=== PATIENT | female | born 1970 | race American Indian/Alaskan Native ===

== ENCOUNTER 2016-06-11 17:59 | Emergency (ER) | payer OTHER ==
[2016-06-11 18:49] VITALS: BP 121/69
== END 2016-06-11 21:22 | disposition left against medical advice (07) ==
LOC: DL.ED 17:59
DX: Z53.21 Procedure and treatment not carried out due to patient leaving prior to being seen by health care provider (principal)
CPT/HCPCS: 87081; 87430; 87804

== ENCOUNTER 2016-11-27 07:40 | Day surgery (SDC) | payer OTHER ==
[~2016-11-27 07:40] MED LIST: Dextrose 5%-0.45% NaCl 1,000 ML IV SCH; Midazolam 1 MG/ML 2 ML SDV ONE; Sodium Chloride 0.9% 10 ML Syringe FLUSH PRN; fentaNYL 100 MCG/2 ML SDV ONE
[2016-11-27] MEDS ORDERED: Midazolam 1 MG/ML 2 ML SDV IV ONE ×3 (07:41→08:46)
[2016-11-27] MEDS ORDERED: fentaNYL 100 MCG/2 ML SDV IV ONE ×3 (07:41→08:45)
--- NOTE | 2016-11-27 10:42 | OR ---
DATE: 11/27/2016 PROCEDURE: Esophagogastroduodenoscopy and multiple pinch biopsies. INSTRUMENT USED: GIF-H180 Olympus video panendoscope. PREMEDICATIONS: No oral topical anesthesia used. Fentanyl 100 mcg intravenous, Versed 2 mg intravenous, nasal 2 L O2 cannula. The procedure was done under pulse oximetry, BP recording, and monitoring engineer. INDICATION: The patient with persistent upper abdominal pain unexplained, not responsive to medical measures. Recent CT enterography suggestive of prominent small bowel folds. Previous duodenal biopsy suspicious for celiac disease. DESCRIPTION OF PROCEDURE: Esophagogastroduodenoscopy is performed for detection of any active erosive lesions. Biopsies to be obtained from the small bowel for any evidence of celiac disease, endoscopic hemostasis therapy if needed. The scope was passed with ease. Adequate visualization of the esophagus was made from proximal to distal areas. No upper esophageal lesions identified. No distal esophageal stricture. No uphill or downhill esophageal varices. No Ella-Ibarra tear. No evidence of erosive esophagitis by [place] criteria. No esophageal polyp or tumor mass identified. Z-line was seen at around 40 cm distal to the oral verge, configuration consistent with Grade 1 by Zapp classification. No esophageal polyp or tumor mass identified. No proximal gastric varices noted. Gastric fundus examination by retroflexion showed no polypoid lesions. No gastric ulcer, malignant mass, or vascular ectasia identified. Duodenal bulb showed no ulcer. Visualized second part of the duodenum was unremarkable. Multiple pinch biopsies four in number were taken from different areas of the second part of the duodenum, and tissues were obtained from the duodenal bulb at 9 o'clock and 12 o'clock positions and sent for any histopathologic evidence of celiac disease. No bleeding was noted from any of the visualized areas at the completion of examination. Photographs were taken of the duodenal bulb, gastric antrum, and distal esophagus. IMPRESSION: Normal study. The patient tolerated the procedure well. [facility] /[id number]
[2016-11-27 11:04] VITALS: BP 102/60
--- NOTE | 2016-11-27 11:42 | LETTER ---
11/27/2016 Allyson Zhu NP [facility] [address] [place] [address] RE: NISHANIMCO : 1970 Dear Ms. Zhu: Ms. Nimco Luis had esophagogastroduodenoscopy done this morning and she tolerated the procedure well. I herewith send a copy of the endoscopy note and photographs for your review. Thank you. Sincerely, [facility] /[id number]
== END 2016-11-27 11:00 | disposition home or self-care (01) ==
LOC: DL.ENDO 07:40
PROVIDERS: ATTEND Internal Medicine Gastroenterology
DX: R10.10 Upper abdominal pain, unspecified (principal); E11.9 Type 2 diabetes mellitus without complications; E78.5 Hyperlipidemia, unspecified; E66.9 Obesity, unspecified; Z90.49 Acquired absence of other specified parts of digestive tract; Z98.890 Other specified postprocedural states; F43.21 Adjustment disorder with depressed mood
CPT/HCPCS: 43239; J2250; J3010; J7042

== ENCOUNTER 2017-03-27 00:08 | Emergency (ER) | payer OTHER ==
[2017-03-27] MEDS ORDERED: Sodium Chloride 0.9% 1,000 ML IV ONE (00:45)
[2017-03-27 00:46] LABS: CHLORIDE,CL 106 mmol/L (101-111); SODIUM,NA 139 mmol/L (135-145)
[2017-03-27] MEDS ORDERED: Iopamidol 612 MG/ML 75 ML Bottle IVPUSH ONE (02:04)
--- NOTE | 2017-03-27 02:10 | EDM.PDOC ---
ED HPI GENERAL MEDICAL PROBLEM - General Chief Complaint: Diabetic Complaint Stated Complaint: BLOOD SUGAR LOW Time Seen by Provider: 03/27/17 00:20 Source of Information: Reports: Patient History Limitations: Reports: No Limitations - History of Present Illness INITIAL COMMENTS - FREE TEXT/NARRATIVE: C/o of lower left back pain and blood sugars keep dropping today with her lowest of 32. Blood sugars lower than usual for past 2 days. Was seen in clinic today and told just to eat more. Has had nausea, vomiting and a couple diarrhea stools. Lower Back Pain Score (Numeric/FACES): 9 - Related Data Allergies Allergy/AdvReac Type Severity Reaction Status Date / Time No Known Allergies Allergy Verified 03/27/17 01:22 Home Meds: Home Meds Fenofibrate [Fenoglide] 135 mg PO DAILY 09/07/13 [History] Omeprazole 20 mg PO BID 09/07/13 [History] metFORMIN HCl [Metformin HCl] 1,000 mg PO BID 09/07/13 [History] glyBURIDE [Glyburide] 10 mg PO BID 09/08/13 [History] Acetaminophen [Tylenol] 2 tab PO ASDIRECTED PRN 02/06/14 [History] Aspirin [Halfprin] 81 mg PO DAILY 11/04/14 [History] Insulin Aspart Protam & Aspart [Novolog Mix 70-30 Flexpen Syrn] 20 units SQ BIDMEALS 11/26/16 [History] Levonorgestrel [Mirena] 1 device VAG ASDIRECTED 11/26/16 [History] Saxagliptin HCl [Onglyza] 0.5 tab PO DAILY 11/26/16 [History] Ergocalciferol (Vitamin D2) [Vitamin D2] 50,000 units PO Q7D 11/27/16 [History] atorvaSTATin [Lipitor] 1 tab PO BEDTIME 11/27/16 [History] Past Medical History Other HEENT History: WEARS CORRECTIVE LENSES Respiratory History: Reports: None Gastrointestinal History: Reports: GERD Genitourinary History: Reports: None Other OB/BYN History: 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 ADJUSTMENT DISORDER Endocrine/Metabolic History: Reports: Diabetes, Type II Hematologic History: Reports: Anemia Immunologic History: Reports: None Oncologic (Cancer) History: Reports: None Other Dermatologic History: ECZEMA ON BILAT ARMS & HANDS - Infectious Disease History Infectious Disease History: Reports: Chicken Pox, Measles, Mumps - Past Surgical History Other HEENT Surgeries/Procedures: WISDOM TEETH EXTRACTION X4 GI Surgical History: Reports: Cholecystectomy, Colonoscopy, EGD Female Surgical History: Reports: Section, LEEP, Salpingo- Oophorectomy, Tubal Ligation Other Female Surgeries/Procedures: VAGINAL CERVICAL LEEP TREATMENT, SALPINGO- OOPHRECTOMY RIGHT, TUBUAL BLOCK BY DEVICE Social & Family History - Tobacco Use Smoking Status *Q: Current Every Day Smoker Years of Tobacco use: 20 Packs/Tins Daily: 0.8 Used Tobacco, but Quit: No Second Hand Smoke Exposure: Yes - Caffeine Use Caffeine Use: Reports: Coffee - Alcohol Use Days Per Week of Alcohol Use: 0 Number of Drinks Per Day: 1 Total Drinks Per Week: 0 - Recreational Drug Use Recreational Drug Use: No Drug Use in Last 12 Months: No ED ROS GENERAL - Review of Systems Review Of Systems: See Below Constitutional: Reports: No Symptoms HEENT: Reports: No Symptoms Respiratory: Reports: No Symptoms Cardiovascular: Reports: No Symptoms Endocrine: Reports: Low Glucose GI/Abdominal: Reports: Vomiting : Reports: No Symptoms Musculoskeletal: Reports: Back Pain Skin: Reports: No Symptoms Neurological: Reports: No Symptoms ED EXAM GENERAL NO PERIP PULSE - Physical Exam Exam: See Below Exam Limited By: No Limitations General Appearance: Alert, Moderate Distress Eye Exam: Bilateral Eye: PERRL Ears: Normal External Exam Throat/Mouth: Normal Inspection Head: Atraumatic, Normocephalic Neck: Normal Inspection, Full Range of Motion Respiratory/Chest: No Respiratory Distress, Lungs Clear, Normal Breath Sounds Cardiovascular: Normal Peripheral Pulses, Regular Rate, Rhythm, No Edema GI/Abdominal: Normal Bowel Sounds, Soft, Non-Tender. No: Distended Back Exam: Full Range of Motion, CVA Tenderness (R), Paraspinal Tenderness. No : Vertebral Tenderness Extremities: Normal Inspection Neurological: Alert, Oriented Psychiatric: Anxious Skin Exam: Warm, Dry, Intact, Normal Color Course - Vital Signs Last Recorded V/S: Last Vital Signs Temp 97.9 F 03/27/17 01:58 Pulse 69 03/27/17 01:58 Resp 16 03/27/17 01:58 BP 129/66 03/27/17 01:58 Pulse Ox 98 03/27/17 01:58 - Orders/Labs/Meds Orders: Active Orders 24 hr Category Date Time Status Blood Glucose Check, Bedside [RC] ONETIME Care 03/27/17 00:10 Active Glucose [Blood Glucose Check, Bedside] [RC] ONETIME Care 03/27/17 01:18 Active Abdomen Pelvis w Cont [CT] Urgent Exams 03/27/17 01:11 Taken Chest 1V Frontal [CR] Urgent Exams 03/27/17 01:11 Taken Lumbar Spine wo Cont [CT] Urgent Exams 03/27/17 01:11 Taken CULTURE BLOOD [BC] Stat Lab 03/27/17 00:57 Received CULTURE BLOOD [BC] Stat Lab 03/27/17 01:02 Received Blood Culture x2 Reflex Set [OM.PC] Stat Oth 03/27/17 00:46 Ordered Labs: Laboratory Tests 03/27/17 03/27/17 03/27/17 Range/Units 00:19 00:20 00:20 WBC 19.3 H (5.0-10.0) 10^3/uL RBC 5.19 (4.2-5.4) 10^6/uL Hgb 11.1 L D (12.0-16.0) g/dL Hct 36.4 L (37.0-47.0) % MCV 70.1 L D (80-100) fL MCH 21.4 L (27.0-34.0) pg MCHC 30.5 L (33.0-35.0) g/dL Plt Count 436 (150-450) 10^3/uL Neut % (Auto) 63.5 (42.2-75.2) % Lymph % (Auto) 29.8 (20.5-50.1) % [place] % (Auto) 5.4 (2-8) % Eos % (Auto) 1.1 (1.0-3.0) % Baso % (Auto) 0.2 (0.0-1.0) % Sodium 139 (135-145) mmol/L Potassium 4.1 (3.6-5.0) mmol/L Chloride 106 (101-111) mmol/L Carbon Dioxide 25.0 (21.0-31.0) mmol/L Anion Gap 12.1 BUN 7 (7-18) mg/dL Creatinine 0.7 (0.6-1.3) mg/dL Est Cr Clr Drug Dosing 87.64 mL/min Estimated GFR (MDRD) > 60 BUN/Creatinine Ratio 10.00 Glucose 129 H (74-105) mg/dL POC Glucose 111 H (70-105) mg/dl Lactic Acid (0.5-2.2) mmol/L Calcium 9.5 (8.4-10.2) mg/dl Total Bilirubin 0.1 L (0.2-1.0) mg/dL AST 22 (10-42) IU/L ALT 25 (10-60) IU/L Alkaline Phosphatase 77 (42-121) IU/L Total Protein 8.0 (6.7-8.2) g/dl Albumin 4.1 (3.2-5.5) g/dl Globulin 3.9 Albumin/Globulin Ratio 1.05 Urine Color (YELLOW) Urine Appearance (CLEAR) Urine pH (5.0-9.0) Ur Specific [place] (1.005-1.030) Urine Protein (NEGATIVE) Urine Glucose (UA) (NEGATIVE) Urine Ketones (NEGATIVE) Urine Occult Blood (NEGATIVE) Urine Nitrite (NEGATIVE) Urine Bilirubin (NEGATIVE) Urine Urobilinogen (0.2-1.0) mg/dL Ur Leukocyte Esterase (NEGATIVE) Urine RBC /HPF Urine WBC (0-5/HPF) /HPF Ur Epithelial Cells /HPF Calcium Oxalate Crystal /HPF Amorphous Sediment (0/HPF) /HPF Urine Bacteria (0-FEW/HPF) /HPF Urine Mucus /LPF Urine Opiates Screen (NEGATIVE) Ur Oxycodone Screen (NEGATIVE) Urine Methadone Screen (NEGATIVE) Ur Barbiturates Screen (NEGATIVE) U Tricyclic Antidepress (NEGATIVE) Ur Phencyclidine Scrn (NEGATIVE) Ur Amphetamine Screen (NEGATIVE) U Methamphetamines Scrn (NEGATIVE) Urine MDMA Screen (NEGATIVE) U Benzodiazepines Scrn (NEGATIVE) Urine Cocaine Screen (NEGATIVE) U Marijuana (THC) Screen (NEGATIVE) 03/27/17 03/27/17 03/27/17 Range/Units 00:32 00:32 00:57 WBC (5.0-10.0) 10^3/uL RBC (4.2-5.4) 10^6/uL Hgb (12.0-16.0) g/dL Hct (37.0-47.0) % MCV (80-100) fL MCH (27.0-34.0) pg MCHC (33.0-35.0) g/dL Plt Count (150-450) 10^3/uL Neut % (Auto) (42.2-75.2) % Lymph % (Auto) (20.5-50.1) % [place] % (Auto) (2-8) % Eos % (Auto) (1.0-3.0) % Baso % (Auto) (0.0-1.0) % Sodium (135-145) mmol/L Potassium (3.6-5.0) mmol/L Chloride (101-111) mmol/L Carbon Dioxide (21.0-31.0) mmol/L Anion Gap BUN (7-18) mg/dL Creatinine (0.6-1.3) mg/dL Est Cr Clr Drug Dosing mL/min Estimated GFR (MDRD) BUN/Creatinine Ratio Glucose (74-105) mg/dL POC Glucose (70-105) mg/dl Lactic Acid 1.0 (0.5-2.2) mmol/L Calcium (8.4-10.2) mg/dl Total Bilirubin (0.2-1.0) mg/dL AST (10-42) IU/L ALT (10-60) IU/L Alkaline Phosphatase (42-121) IU/L Total Protein (6.7-8.2) g/dl Albumin (3.2-5.5) g/dl Globulin Albumin/Globulin Ratio Urine Color Yellow (YELLOW) Urine Appearance Cloudy (CLEAR) Urine pH 5.5 (5.0-9.0) Ur Specific [place] >= 1.030 (1.005-1.030) Urine Protein Negative (NEGATIVE) Urine Glucose (UA) Negative (NEGATIVE) Urine Ketones Trace H (NEGATIVE) Urine Occult Blood Negative (NEGATIVE) Urine Nitrite Negative (NEGATIVE) Urine Bilirubin Small H (NEGATIVE) Urine Urobilinogen 0.2 (0.2-1.0) mg/dL Ur Leukocyte Esterase Negative (NEGATIVE) Urine RBC 0-5 /HPF Urine WBC 0-5 (0-5/HPF) /HPF Ur Epithelial Cells Many H /HPF Calcium Oxalate Crystal Many H /HPF Amorphous Sediment Rare (0/HPF) /HPF Urine Bacteria Few (0-FEW/HPF) /HPF Urine Mucus Few H /LPF Urine Opiates Screen Negative (NEGATIVE) Ur Oxycodone Screen Negative (NEGATIVE) Urine Methadone Screen Negative (NEGATIVE) Ur Barbiturates Screen Negative (NEGATIVE) U Tricyclic Antidepress Negative (NEGATIVE) Ur Phencyclidine Scrn Negative (NEGATIVE) Ur Amphetamine Screen Negative (NEGATIVE) U Methamphetamines Scrn Negative (NEGATIVE) Urine MDMA Screen Negative (NEGATIVE) U Benzodiazepines Scrn Negative (NEGATIVE) Urine Cocaine Screen Negative (NEGATIVE) U Marijuana (THC) Screen Negative (NEGATIVE) 03/27/17 Range/Units 01:26 WBC (5.0-10.0) 10^3/uL RBC (4.2-5.4) 10^6/uL Hgb (12.0-16.0) g/dL Hct (37.0-47.0) % MCV (80-100) fL MCH (27.0-34.0) pg MCHC (33.0-35.0) g/dL Plt Count (150-450) 10^3/uL Neut % (Auto) (42.2-75.2) % Lymph % (Auto) (20.5-50.1) % [place] % (Auto) (2-8) % Eos % (Auto) (1.0-3.0) % Baso % (Auto) (0.0-1.0) % Sodium (135-145) mmol/L Potassium (3.6-5.0) mmol/L Chloride (101-111) mmol/L Carbon Dioxide (21.0-31.0) mmol/L Anion Gap BUN (7-18) mg/dL Creatinine (0.6-1.3) mg/dL Est Cr Clr Drug Dosing mL/min Estimated GFR (MDRD) BUN/Creatinine Ratio Glucose (74-105) mg/dL POC Glucose 79 (70-105) mg/dl Lactic Acid (0.5-2.2) mmol/L Calcium (8.4-10.2) mg/dl Total Bilirubin (0.2-1.0) mg/dL AST (10-42) IU/L ALT (10-60) IU/L Alkaline Phosphatase (42-121) IU/L Total Protein (6.7-8.2) g/dl Albumin (3.2-5.5) g/dl Globulin Albumin/Globulin Ratio Urine Color (YELLOW) Urine Appearance (CLEAR) Urine pH (5.0-9.0) Ur Specific [place] (1.005-1.030) Urine Protein (NEGATIVE) Urine Glucose (UA) (NEGATIVE) Urine Ketones (NEGATIVE) Urine Occult Blood (NEGATIVE) Urine Nitrite (NEGATIVE) Urine Bilirubin (NEGATIVE) Urine Urobilinogen (0.2-1.0) mg/dL Ur Leukocyte Esterase (NEGATIVE) Urine RBC /HPF Urine WBC (0-5/HPF) /HPF Ur Epithelial Cells /HPF Calcium Oxalate Crystal /HPF Amorphous Sediment (0/HPF) /HPF Urine Bacteria (0-FEW/HPF) /HPF Urine Mucus /LPF Urine Opiates Screen (NEGATIVE) Ur Oxycodone Screen (NEGATIVE) Urine Methadone Screen (NEGATIVE) Ur Barbiturates Screen (NEGATIVE) U Tricyclic Antidepress (NEGATIVE) Ur Phencyclidine Scrn (NEGATIVE) Ur Amphetamine Screen (NEGATIVE) U Methamphetamines Scrn (NEGATIVE) Urine MDMA Screen (NEGATIVE) U Benzodiazepines Scrn (NEGATIVE) Urine Cocaine Screen (NEGATIVE) U Marijuana (THC) Screen (NEGATIVE) Meds: Medications Discontinued Medications Generic Name Dose Route Start Last Admin Trade Name Freq PRN Reason Stop Dose Admin Sodium Chloride 1,000 mls @ 999 mls/hr 03/27/17 00:45 03/27/17 01:07 Normal Saline IV 03/27/17 01:45 999 mls/hr .BOLUS ONE Administration Iopamidol 75 ml 03/27/17 02:04 03/27/17 02:07 Isovue-300 (61%) IVPUSH 03/27/17 02:05 73 ml ONETIME ONE Administration - Radiology Interpretation Free Text/Narrative:: Lumbar CT-L5-S1 disc bulge CXR negative Abdomen Pelvis negative. - Re-Assessments/Exams Free Text/Narrative Re-Assessment/Exam: Blood sugars stable in ED, Intial presentation of pain improved, Has had no vomiting. No fever. Moving in bed and from bed to chair easily. Light dosing, arousees easily. Findings discussed with patient. Departure - Departure Time of Disposition: 03:01 Disposition: Home, Self-Care 01 Condition: Good Clinical Impression: Hypoglycemia, Gastroenteritis Vomiting Qualifiers: Vomiting type: bilious vomiting Nausea presence: with nausea Qualified Code(s) : R11.14 - Bilious vomiting - Discharge Information Instructions: Hypoglycemia Forms: ED Department Discharge Additional Instructions: increase frequency of meals next 2-3 days monitor blood sugars, follow up with primary care if not improving - My Orders Last 24 Hours: My Active Orders 03/27/17 00:10 Blood Glucose Check, Bedside [RC] ONETIME 03/27/17 00:46 Blood Culture x2 Reflex Set [OM.PC] Stat 03/27/17 00:57 CULTURE BLOOD [BC] Stat 03/27/17 01:02 CULTURE BLOOD [BC] Stat 03/27/17 01:11 Abdomen Pelvis w Cont [CT] Urgent Chest 1V Frontal [CR] Urgent Lumbar Spine wo Cont [CT] Urgent 03/27/17 01:18 Glucose [Blood Glucose Check, Bedside] [RC] ONETIME - Assessment/Plan Last 24 Hours: My Active Orders 03/27/17 00:10 Blood Glucose Check, Bedside [RC] ONETIME 03/27/17 00:46 Blood Culture x2 Reflex Set [OM.PC] Stat 03/27/17 00:57 CULTURE BLOOD [BC] Stat 03/27/17 01:02 CULTURE BLOOD [BC] Stat 03/27/17 01:11 Abdomen Pelvis w Cont [CT] Urgent Chest 1V Frontal [CR] Urgent Lumbar Spine wo Cont [CT] Urgent 03/27/17 01:18 Glucose [Blood Glucose Check, Bedside] [RC] ONETIME
[2017-03-27 03:15] VITALS: BP 118/70
== END 2017-03-27 03:21 | disposition home or self-care (01) ==
LOC: DL.ED 00:08
DX: E11.649 Type 2 diabetes mellitus with hypoglycemia without coma (principal); K52.9 Noninfective gastroenteritis and colitis, unspecified; F17.210 Nicotine dependence, cigarettes, uncomplicated; Z79.899 Other long term (current) drug therapy; Z79.82 Long term (current) use of aspirin; Z79.4 Long term (current) use of insulin
CPT/HCPCS: 36415; 71010; 72131; 74177; 80053; 80305; 81001; 82962; 83605; 85025; 87040; 96360; 99284; J7030; Q9967

== ENCOUNTER 2017-04-08 07:31 | Emergency (ER) | payer OTHER ==
[2017-04-08] MEDS ORDERED: Ondansetron 4 MG/2 ML SDV IV ONE (07:33)
[2017-04-08 07:39] VITALS: BP 129/69
[2017-04-08] MEDS ORDERED: MVI, Adult with Vitamin K 10 ML, Folic Acid 1 MG, Thiamine 100 MG in Lactated Ringers 1... IV ONE ×4 (08:21)
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
[2017-04-08 08:27] LABS: ANION GAP 16.3; CHLORIDE,CL 108 mmol/L (101-111); SODIUM,NA 142 mmol/L (135-145)
[2017-04-08 08:28] LABS: ACETAMINOPHEN < 10
--- NOTE | 2017-04-10 21:17 | EKG ---
04/08/2017 - NISHASeptember - This 12-lead EKG shows a sinus tachycardia with a ventricular rate of 122. Normal axis and intervals. No acute ST-segment or T-wave changes. [facility] /[id number]
== END 2017-04-08 09:12 ==
LOC: DL.ED 07:31
DX: T38.3X2A Poisoning by insulin and oral hypoglycemic [antidiabetic] drugs, intentional self-harm, initial encounter (principal); S51.812A Laceration without foreign body of left forearm, initial encounter; S51.811A Laceration without foreign body of right forearm, initial encounter; F10.10 Alcohol abuse, uncomplicated; E11.9 Type 2 diabetes mellitus without complications; E87.2 Acidosis; D72.829 Elevated white blood cell count, unspecified; R11.14 Bilious vomiting; F32.9 Major depressive disorder, single episode, unspecified; Y90.6 Blood alcohol level of 120-199 mg/100 ml; K21.9 Gastro-esophageal reflux disease without esophagitis; F17.210 Nicotine dependence, cigarettes, uncomplicated; Z79.4 Long term (current) use of insulin; Z79.82 Long term (current) use of aspirin; Z79.899 Other long term (current) drug therapy; X78.0XXA Intentional self-harm by sharp glass, initial encounter
CPT/HCPCS: 36415; 80053; 80305; 81001; 81025; 83605; 83735; 85025; 86703; 86803; 87340; 93005; 96361; 96374; 99285; G0480; J2405; J3411; J7120; J3490

== ENCOUNTER 2019-07-11 18:35 | Emergency (ER) | payer BC, OTHER ==
--- NOTE | 2019-07-11 20:01 | EDM.PDOC ---
ED HPI GENERAL MEDICAL PROBLEM - General Chief Complaint: General Stated Complaint: DIABETES, FEVER, ACHES, YEAST INFECTION Time Seen by Provider: 07/11/19 19:30 Source of Information: Reports: Patient History Limitations: Reports: No Limitations - History of Present Illness INITIAL COMMENTS - FREE TEXT/NARRATIVE: ED with c/o chills, low back pain, increased frequency and burning with urination, Redness to groin, Blood sugars running on high up to 300. No nausea or vomiting, No cough. No general body aches, Discomfort limited to low back. No SOB. Bilateral Lower Pelvic Pain Score (Numeric/FACES): 6 - Related Data Allergies Allergy/AdvReac Type Severity Reaction Status Date / Time No Known Allergies Allergy Verified 07/11/19 19:09 Home Meds: Home Meds Fenofibrate [Fenoglide] 135 mg PO DAILY 09/07/13 [History] Omeprazole 20 mg PO BID 09/07/13 [History] metFORMIN HCl [Metformin HCl] 1,000 mg PO BID 09/07/13 [History] glyBURIDE [Glyburide] 10 mg PO BID 09/08/13 [History] Acetaminophen [Tylenol] 2 tab PO ASDIRECTED PRN 02/06/14 [History] Aspirin [Halfprin] 81 mg PO DAILY 11/04/14 [History] Insulin Aspart Protam & Aspart [Novolog Mix 70-30 Flexpen Syrn] 30 units SQ BIDMEALS 11/26/16 [History] Levonorgestrel [Mirena] 1 device VAG ASDIRECTED 11/26/16 [History] Saxagliptin HCl [Onglyza] 0.5 tab PO DAILY 11/26/16 [History] Ergocalciferol (Vitamin D2) [Vitamin D2] 50,000 units PO Q7D 11/27/16 [History] atorvaSTATin [Lipitor] 1 tab PO BEDTIME 11/27/16 [History] Past Medical History HEENT History: Reports: Impaired Vision Other HEENT History: WEARS CORRECTIVE LENSES Respiratory History: Reports: None Gastrointestinal History: Reports: GERD Genitourinary History: Reports: None 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 ADJUSTMENT DISORDER Endocrine/Metabolic History: Reports: Diabetes, Type II Hematologic History: Reports: Anemia Immunologic History: Reports: None Oncologic (Cancer) History: Reports: None Other Dermatologic History: ECZEMA ON BILAT ARMS & HANDS - Infectious Disease History Infectious Disease History: Reports: Chicken Pox, Measles, Mumps - Past Surgical History HEENT Surgical History: Reports: Oral Surgery Other HEENT Surgeries/Procedures: WISDOM TEETH EXTRACTION X4 GI Surgical History: Reports: Cholecystectomy, Colonoscopy, EGD Female Surgical History: Reports: Section, LEEP, Salpingo- Oophorectomy, Tubal Ligation Other Female Surgeries/Procedures: VAGINAL CERVICAL LEEP TREATMENT, SALPINGO- OOPHRECTOMY RIGHT, TUBUAL BLOCK BY DEVICE Social & Family History - Family History Family Medical History: Noncontributory - Tobacco Use Smoking Status *Q: Current Every Day Smoker Years of Tobacco use: 13 Packs/Tins Daily: 0.5 - Caffeine Use Caffeine Use: Reports: Coffee - Recreational Drug Use Recreational Drug Use: No ED ROS GENERAL - Review of Systems Review Of Systems: Comprehensive ROS is negative, except as noted in HPI. ED EXAM, GENERAL - Physical Exam Exam: See Below Exam Limited By: No Limitations General Appearance: Alert, No Apparent Distress, Obese Eye Exam: Bilateral Eye: EOMI Ears: Normal External Exam Nose: Normal Inspection Throat/Mouth: Normal Inspection Head: Atraumatic, Normocephalic Neck: Normal Inspection Respiratory/Chest: No Respiratory Distress, Lungs Clear, Normal Breath Sounds Cardiovascular: Normal Peripheral Pulses, Regular Rate, Rhythm GI/Abdominal: Normal Bowel Sounds, Soft, Non-Tender (Female) Exam: Other (skin abscess crusted dry left upper labia with mild induration 5mm diameter tender, groin and labia with yeast appearance) Back Exam: Paraspinal Tenderness (left) Extremities: Normal Inspection, Normal Range of Motion Psychiatric: Normal Affect, Normal Mood Skin Exam: Warm, Dry, Intact, Normal Color Course - Vital Signs Last Recorded V/S: Last Vital Signs Temp 97.5 F 07/11/19 21:25 Pulse 87 07/11/19 21:25 Resp 19 07/11/19 21:25 BP 137/76 07/11/19 21:25 Pulse Ox 99 07/11/19 21:25 - Orders/Labs/Meds Orders: Active Orders 24 hr Category Date Time Status CULTURE BLOOD [BC] Stat Lab 07/11/19 19:35 Received Labs: Laboratory Tests 07/11/19 07/11/19 07/11/19 Range/Units 19:21 19:35 19:35 WBC 12.5 H (5.0-10.0) 10^3/uL RBC 4.87 (4.2-5.4) 10^6/uL Hgb 13.8 D (12.0-16.0) g/dL Hct 41.3 (37.0-47.0) % MCV 84.8 D (80-100) fL MCH 28.3 (27.0-34.0) pg MCHC 33.4 (33.0-35.0) g/dL Plt Count 230 D (150-450) 10^3/uL Neut % (Auto) 60.1 (42.2-75.2) % Lymph % (Auto) 32.1 (20.5-50.1) % [place] % (Auto) 5.9 (2-8) % Eos % (Auto) 1.7 (1.0-3.0) % Baso % (Auto) 0.2 (0.0-1.0) % Sodium 137 (136-145) mmol/L Potassium 3.9 (3.5-5.1) mmol/L Chloride 100 (98-107) mmol/L Carbon Dioxide 26 (21-32) mmol/L Anion Gap 14.9 H (7-13) mEq/L BUN 6 L (7-18) mg/dL Creatinine 0.72 (0.55-1.02) mg/dL Est Cr Clr Drug Dosing 82.51 mL/min Estimated GFR (MDRD) > 60 BUN/Creatinine Ratio 8.3 (No establ ref range) Glucose 177 H (74-99) mg/dL Lactic Acid (0.4-2.0) mmol/L Calcium 8.6 (8.5-10.1) mg/dL Total Bilirubin 0.5 (0.2-1.0) mg/dL AST 19 (15-37) U/L ALT 37 (14-59) U/L Alkaline Phosphatase 139 H (46-116) U/L Total Protein 7.8 (6.4-8.2) g/dL Albumin 3.7 (3.4-5.0) g/dL Globulin 4.1 Albumin/Globulin Ratio 0.90 Urine Color Yellow (YELLOW) Urine Appearance Clear (CLEAR) Urine pH 7.0 (5.0-9.0) Ur Specific [place] 1.020 (1.005-1.030) Urine Protein Negative (NEGATIVE) Urine Glucose (UA) 500 H (NEGATIVE) Urine Ketones Negative (NEGATIVE) Urine Occult Blood Trace-intact H (NEGATIVE) Urine Nitrite Negative (NEGATIVE) Urine Bilirubin Negative (NEGATIVE) Urine Urobilinogen 0.2 (0.2-1.0) mg/dL Ur Leukocyte Esterase Negative (NEGATIVE) Urine RBC Not seen /HPF Urine WBC Not seen (0-5/HPF) /HPF Ur Epithelial Cells Few (NOT SEEN) /HPF Urine Bacteria Few (0-FEW/HPF) /HPF Urine Yeast Many H (NOT SEEN) /HPF 07/11/19 Range/Units 19:35 WBC (5.0-10.0) 10^3/uL RBC (4.2-5.4) 10^6/uL Hgb (12.0-16.0) g/dL Hct (37.0-47.0) % MCV (80-100) fL MCH (27.0-34.0) pg MCHC (33.0-35.0) g/dL Plt Count (150-450) 10^3/uL Neut % (Auto) (42.2-75.2) % Lymph % (Auto) (20.5-50.1) % [place] % (Auto) (2-8) % Eos % (Auto) (1.0-3.0) % Baso % (Auto) (0.0-1.0) % Sodium (136-145) mmol/L Potassium (3.5-5.1) mmol/L Chloride (98-107) mmol/L Carbon Dioxide (21-32) mmol/L Anion Gap (7-13) mEq/L BUN (7-18) mg/dL Creatinine (0.55-1.02) mg/dL Est Cr Clr Drug Dosing mL/min Estimated GFR (MDRD) BUN/Creatinine Ratio (No establ ref range) Glucose (74-99) mg/dL Lactic Acid 1.1 (0.4-2.0) mmol/L Calcium (8.5-10.1) mg/dL Total Bilirubin (0.2-1.0) mg/dL AST (15-37) U/L ALT (14-59) U/L Alkaline Phosphatase (46-116) U/L Total Protein (6.4-8.2) g/dL Albumin (3.4-5.0) g/dL Globulin Albumin/Globulin Ratio Urine Color (YELLOW) Urine Appearance (CLEAR) Urine pH (5.0-9.0) Ur Specific [place] (1.005-1.030) Urine Protein (NEGATIVE) Urine Glucose (UA) (NEGATIVE) Urine Ketones (NEGATIVE) Urine Occult Blood (NEGATIVE) Urine Nitrite (NEGATIVE) Urine Bilirubin (NEGATIVE) Urine Urobilinogen (0.2-1.0) mg/dL Ur Leukocyte Esterase (NEGATIVE) Urine RBC /HPF Urine WBC (0-5/HPF) /HPF Ur Epithelial Cells (NOT SEEN) /HPF Urine Bacteria (0-FEW/HPF) /HPF Urine Yeast (NOT SEEN) /HPF Meds: Medications Discontinued Medications Generic Name Dose Route Start Last Admin Trade Name Freq PRN Reason Stop Dose Admin Ceftriaxone Sodium 1 gm/ 0 gm 07/11/19 20:32 07/11/19 20:52 Lidocaine HCl 2.1 ml IM 07/11/19 20:33 Not Given ONETIME ONE Doxycycline Hyclate 100 mg 07/11/19 20:32 07/11/19 20:51 Vibramycin PO 07/11/19 20:33 100 mg ONETIME ONE Administration Ceftriaxone Sodium 1 gm/ 50 mls @ 100 mls/hr 07/11/19 20:42 07/11/19 20:51 Sodium Chloride IV 07/11/19 21:11 100 mls/hr ONETIME ONE Administration Departure - Departure Time of Disposition: 20:34 Disposition: Home, Self-Care 01 Condition: Good Clinical Impression: Hyperglycemia, Diabetes mellitus, Yeast infection of the vagina, Abscess of right genital labia, Dysuria - Discharge Information *PRESCRIPTION DRUG MONITORING PROGRAM REVIEWED*: No *COPY OF PRESCRIPTION DRUG MONITORING REPORT IN PATIENT JACOB: No Instructions: Skin Abscess, [id number] Forms: ED Department Discharge Additional Instructions: warm soaks to [place] area pat dry increase fluid monitor blood sugar diflucan 150mg one on day 1 then repeat in 3 days doxycycline 100mg twice daily for 10days follow up if symptoms worsen, fever, general body aches, Sepsis Event Note - Evaluation Sepsis Screening Result: No Definite Risk - Focused Exam Vital Signs: Vital Signs Temp Pulse Resp BP Pulse Ox 07/11/19 21:25 97.5 F 87 19 137/76 99 07/11/19 19:11 97 F 85 16 116/71 98 Date Exam was Performed: 07/12/19 Time Exam was Performed: 04:22 - My Orders Last 24 Hours: My Active Orders 07/11/19 19:35 CULTURE BLOOD [BC] Stat - Assessment/Plan Last 24 Hours: My Active Orders 07/11/19 19:35 CULTURE BLOOD [BC] Stat
[2019-07-11 20:21] LABS: CHLORIDE,CL 100 mmol/L (98-107); SODIUM,NA 137 mmol/L (136-145)
[2019-07-11 20:30] LABS: ANION GAP 14.9 mEq/L (7-13)
[2019-07-11] MEDS ORDERED: cefTRIAXone 1 GM, Lidocaine 1% 2.1 ML IM ONE ×2 (20:32)
[2019-07-11] MEDS ORDERED: Doxycycline 100 MG Cap PO ONE (20:32)
[2019-07-11] MEDS ORDERED: cefTRIAXone 1 GM in Sodium Chloride 0.9% 50 ML IV ONE (20:42)
[2019-07-11 21:25] VITALS: BP 137/76; PULSE 87
== END 2019-07-11 21:33 | disposition home or self-care (01) ==
LOC: DL.ED 18:35
DX: N76.4 Abscess of vulva (principal); B37.3 Candidiasis of vulva and vagina; E11.65 Type 2 diabetes mellitus with hyperglycemia; K21.9 Gastro-esophageal reflux disease without esophagitis; Z79.84 Long term (current) use of oral hypoglycemic drugs; Z79.899 Other long term (current) drug therapy; Z79.82 Long term (current) use of aspirin
CPT/HCPCS: 36415; 80053; 81001; 83605; 85025; 87040; 96365; 99284; A9270; J0696; J7050

== ENCOUNTER 2019-11-21 02:04 | Observation (INO) | payer BC, OTHER ==
[2019-11-21] MEDS: Sodium Chloride 0.9% 10 ML Syringe FLUSH PRN ×3 (02:15→05:21)
[2019-11-21] MEDS ORDERED: Iopamidol 612 MG/ML 100 ML Bottle IVPUSH ONE (02:24)
[2019-11-21] MEDS ORDERED: Ondansetron 4 MG/2 ML SDV IV ONE (02:35)
[2019-11-21] MEDS ORDERED: fentaNYL 100 MCG/2 ML SDV IVPUSH ONE (02:35)
--- NOTE | 2019-11-21 02:44 | EDM.PDOC ---
"ED HPI GENERAL MEDICAL PROBLEM - General Chief Complaint: Abdominal Pain Stated Complaint: STOMACH PAIN Time Seen by Provider: 11/21/19 02:25 Source of Information: Reports: Patient, RN, RN Notes Reviewed History Limitations: Reports: No Limitations - History of Present Illness INITIAL COMMENTS - FREE TEXT/NARRATIVE: Patient presents to ER with complaint of severe upper abdominal pain which wraps around to the flank and back, as well as bloating and distention. Rates pain 8/10. Patient states she has been doctoring since October 25 with abdominal pain. States she has been doctoring at [facility]. Patient denies any imaging being done. States she did collect a stool sample, and was called and told she had an infection in her colon, and started on oral vancomycin. Patient states prior to starting the vancomycin she normally was constipated needing to use laxatives about every 5 days. Patient states since she has been taking the vancomycin she has had softer, looser stools. Patient states stools have been black. Patient admits to chills from time to time, unsure of fever. Denies chest pains or shortness of breath. Patient states she has had her gallbladder removed, but still has her appendix. Patient states she has had GI problems for several years, for which she has doctored with Dr. Suárez. Patient states history of GERD and acid reflux, diabetes. Onset: Gradual Abdominal Pain Score (Numeric/FACES): 8 - Related Data Allergies Allergy/AdvReac Type Severity Reaction Status Date / Time No Known Allergies Allergy Verified 07/11/19 19:09 Home Meds: Home Meds Fenofibrate [Fenoglide] 135 mg PO DAILY 09/07/13 [History] Omeprazole 20 mg PO BID 09/07/13 [History] metFORMIN HCl [Metformin HCl] 1,000 mg PO BID 09/07/13 [History] glyBURIDE [Glyburide] 10 mg PO BID 09/08/13 [History] Acetaminophen [Tylenol] 2 tab PO ASDIRECTED PRN 02/06/14 [History] Aspirin [Halfprin] 81 mg PO DAILY 11/04/14 [History] Insulin Aspart Prot/Insuln Asp [Novolog Mix 70-30 Flexpen Syrn] 30 units SQ BIDMEALS 11/26/16 [History] Levonorgestrel [Mirena] 1 device VAG ASDIRECTED 11/26/16 [History] Saxagliptin HCl [Onglyza] 0.5 tab PO DAILY 11/26/16 [History] Ergocalciferol (Vitamin D2) [Vitamin D2] 50,000 units PO Q7D 11/27/16 [History] atorvaSTATin [Lipitor] 1 tab PO BEDTIME 11/27/16 [History] Past Medical History HEENT History: Reports: Impaired Vision Other HEENT History: WEARS CORRECTIVE LENSES Respiratory History: Reports: None Gastrointestinal History: Reports: GERD Genitourinary History: Reports: None Other [employer] LANG[employer]AGE INTER[employer]TER History: 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 ADJUSTMENT DISORDER Endocrine/Metabolic History: Reports: Diabetes, Type II Hematologic History: Reports: Anemia Immunologic History: Reports: None Oncologic (Cancer) History: Reports: None Other Dermatologic History: ECZEMA ON BILAT ARMS & HANDS - Infectious Disease History Infectious Disease History: Reports: Chicken Pox, Measles, Mumps - Past Surgical History HEENT Surgical History: Reports: Oral Surgery Other HEENT Surgeries/Procedures: WISDOM TEETH EXTRACTION X4 GI Surgical History: Reports: Cholecystectomy, Colonoscopy, EGD Female Surgical History: Reports: Section, LEEP, Salpingo- Oophorectomy, Tubal Ligation Other Female Surgeries/Procedures: VAGINAL CERVICAL LEEP TREATMENT, SALPINGO- OOPHRECTOMY RIGHT, TUBUAL BLOCK BY DEVICE Social & Family History - Family History Family Medical History: Noncontributory - Tobacco Use Smoking Status *Q: Current Every Day Smoker Years of Tobacco use: 8 Packs/Tins Daily: 0.5 - Caffeine Use Caffeine Use: Reports: Coffee - Recreational Drug Use Recreational Drug Use: No ED ROS GENERAL - Review of Systems Review Of Systems: Comprehensive ROS is negative, except as noted in HPI. ED EXAM, GI/ABD - Physical Exam Exam: See Below Exam Limited By: No Limitations General Appearance: Alert, WD/WN, Moderate Distress Eyes: Bilateral: Normal Appearance, EOMI Ears: Normal External Exam, Hearing Grossly Normal Nose: Normal Inspection Throat/Mouth: Normal Inspection, Normal Voice, No Airway Compromise Head: Atraumatic, Normocephalic Neck: Normal Inspection, Supple, Non-Tender, Full Range of Motion Respiratory/Chest: No Respiratory Distress, Lungs Clear, Normal Breath Sounds, No Accessory Muscle Use, Chest Non-Tender Cardiovascular: Normal Peripheral Pulses, Regular Rate, Rhythm, No Edema, No Gallop, No JVD, No Murmur, No Rub GI/Abdominal Exam: Normal Bowel Sounds, Soft, No Organomegaly, No Abnormal Bruit, No Mass, Distended, Tender (RUQ, LUQ, wrapping around to the back) (Female) Exam: Deferred Rectal (Female) Exam: Deferred Back Exam: Normal Inspection, CVA Tenderness (L), CVA Tenderness (R), Decreased Range of Motion Extremities: Normal Inspection, Normal Range of Motion, Non-Tender, Normal Capillary Refill, No Pedal Edema Neurological: Alert, Oriented, CN II-XII Intact, Normal Cognition, Normal Gait, Normal Reflexes, No Motor/Sensory Deficits Psychiatric: Normal Affect, Anxious, Tearful Skin Exam: Warm, Dry, Intact, Normal Color, No Rash Lymphatic: No Adenopathy Course - Vital Signs Last Recorded V/S: Last Vital Signs Temp 97.9 F 11/21/19 02:16 Pulse 90 11/21/19 02:16 Resp 24 H 11/21/19 02:16 BP 99/69 11/21/19 02:16 Pulse Ox 97 11/21/19 02:16 - Orders/Labs/Meds Orders: Active Orders 24 hr Category Date Time Status Admission Diagnosis [ADT] Stat ADT 11/21/19 04:25 Ordered Patient Status [ADT] Routine ADT 11/21/19 04:25 Active Gastrointestinal Tube Mgmt [RC] ASDIRECTED Care 11/21/19 04:04 Active Peripheral IV Care [RC] . DIRECTED Care 11/21/19 02:16 Active Sodium Chloride 0.9% [Saline Flush] Med 11/21/19 02:15 Active 10 ml FLUSH ASDIRECTED PRN NG [Nasogastric Orogastric Tube Insertion] [OM.PC] Oth 11/21/19 04:04 Ordered Routine Peripheral IV Insertion Adult [OM.PC] Stat Oth 11/21/19 02:15 Ordered Medication Orders Sodium Chloride (Saline Flush) 10 ml FLUSH ASDIRECTED PRN PRN Reason: Keep Vein Open Last Admin: 11/21/19 02:28 Dose: 10 ml Documented by: Admin: 11/21/19 02:15 Dose: 10 ml Documented by: LINDA Labs: Laboratory Tests 11/21/19 11/21/19 11/21/19 Range/Units 02:15 02:19 02:19 WBC 12.8 H (5.0-10.0) 10^3/uL RBC 4.52 (4.2-5.4) 10^6/uL Hgb 13.1 (12.0-16.0) g/dL Hct 39.8 (37.0-47.0) % MCV 88.1 D (80-100) fL MCH 29.0 (27.0-34.0) pg MCHC 32.9 L (33.0-35.0) g/dL Plt Count 220 (150-450) 10^3/uL Neut % (Auto) 55.6 (42.2-75.2) % Lymph % (Auto) 35.1 (20.5-50.1) % [place] % (Auto) 6.4 (2-8) % Eos % (Auto) 2.7 (1.0-3.0) % Baso % (Auto) 0.2 (0.0-1.0) % Sodium 139 (136-145) mmol/L Potassium 3.8 (3.5-5.1) mmol/L Chloride 103 (98-107) mmol/L Carbon Dioxide 26 (21-32) mmol/L Anion Gap 13.8 H (7-13) mEq/L BUN 10 (7-18) mg/dL Creatinine 0.80 (0.55-1.02) mg/dL Est Cr Clr Drug Dosing 74.26 mL/min Estimated GFR (MDRD) > 60 BUN/Creatinine Ratio 12.5 (No establ ref range) Glucose 236 H (74-99) mg/dL Lactic Acid (0.4-2.0) mmol/L Calcium 9.1 (8.5-10.1) mg/dL Total Bilirubin 0.4 (0.2-1.0) mg/dL AST 32 (15-37) U/L ALT 54 (14-59) U/L Alkaline Phosphatase 106 (46-116) U/L Total Protein 8.0 (6.4-8.2) g/dL Albumin 3.7 (3.4-5.0) g/dL Globulin 4.3 Albumin/Globulin Ratio 0.9 Amylase 61 (25-115) U/L Lipase 211 (73-393) U/L Urine Color (YELLOW) Urine Appearance (CLEAR) Urine pH (5.0-9.0) Ur Specific [place] (1.005-1.030) Urine Protein (NEGATIVE) Urine Glucose (UA) (NEGATIVE) Urine Ketones (NEGATIVE) Urine Occult Blood (NEGATIVE) Urine Nitrite (NEGATIVE) Urine Bilirubin (NEGATIVE) Urine Urobilinogen (0.2-1.0) mg/dL Ur Leukocyte Esterase (NEGATIVE) 11/21/19 11/21/19 Range/Units 02:19 02:28 WBC (5.0-10.0) 10^3/uL RBC (4.2-5.4) 10^6/uL Hgb (12.0-16.0) g/dL Hct (37.0-47.0) % MCV (80-100) fL MCH (27.0-34.0) pg MCHC (33.0-35.0) g/dL Plt Count (150-450) 10^3/uL Neut % (Auto) (42.2-75.2) % Lymph % (Auto) (20.5-50.1) % [place] % (Auto) (2-8) % Eos % (Auto) (1.0-3.0) % Baso % (Auto) (0.0-1.0) % Sodium (136-145) mmol/L Potassium (3.5-5.1) mmol/L Chloride (98-107) mmol/L Carbon Dioxide (21-32) mmol/L Anion Gap (7-13) mEq/L BUN (7-18) mg/dL Creatinine (0.55-1.02) mg/dL Est Cr Clr Drug Dosing mL/min Estimated GFR (MDRD) BUN/Creatinine Ratio (No establ ref range) Glucose (74-99) mg/dL Lactic Acid 1.3 (0.4-2.0) mmol/L Calcium (8.5-10.1) mg/dL Total Bilirubin (0.2-1.0) mg/dL AST (15-37) U/L ALT (14-59) U/L Alkaline Phosphatase (46-116) U/L Total Protein (6.4-8.2) g/dL Albumin (3.4-5.0) g/dL Globulin Albumin/Globulin Ratio Amylase (25-115) U/L Lipase (73-393) U/L Urine Color Yellow (YELLOW) Urine Appearance Slightly cloudy (CLEAR) Urine pH 6.0 (5.0-9.0) Ur Specific [place] >= 1.030 (1.005-1.030) Urine Protein Negative (NEGATIVE) Urine Glucose (UA) 100 H (NEGATIVE) Urine Ketones Negative (NEGATIVE) Urine Occult Blood Negative (NEGATIVE) Urine Nitrite Negative (NEGATIVE) Urine Bilirubin Negative (NEGATIVE) Urine Urobilinogen 0.2 (0.2-1.0) mg/dL Ur Leukocyte Esterase Negative (NEGATIVE) Meds: Medications Generic Name Dose Route Start Last Admin Trade Name Freq PRN Reason Stop Dose Admin Sodium Chloride 10 ml 11/21/19 02:15 11/21/19 02:28 Saline Flush FLUSH 10 ml ASDIRECTED PRN Administration Keep Vein Open Discontinued Medications Generic Name Dose Route Start Last Admin Trade Name Freq PRN Reason Stop Dose Admin Fentanyl 50 mcg 11/21/19 02:35 11/21/19 02:47 Sublimaze IVPUSH 11/21/19 02:36 50 mcg ONETIME ONE Administration Iopamidol 100 ml 11/21/19 02:24 11/21/19 02:47 Isovue-300 (61%) IVPUSH 11/21/19 02:25 100 ml ONETIME ONE Administration Ondansetron HCl 4 mg 11/21/19 02:35 11/21/19 02:48 Zofran IV 11/21/19 02:36 4 mg ONETIME ONE Administration - Radiology Interpretation Free Text/Narrative:: CT of abdomen/pelvis with contrast: PROCEDURE INFORMATION: Exam: CT Abdomen And Pelvis With Contrast Exam date and time: 11/21/2019 2:41 AM Age: 49 years old Clinical indication: Other: Wbc 12,200; Additional info: Abdominal pain, distended TECHNIQUE: Imaging protocol: Computed tomography of the abdomen and pelvis with intravenous contrast. Radiation optimization: All CT scans at this facility use at least one of these dose optimization techniques: automated exposure control; mA and/or kV adjustment per patient size (includes targeted exams where dose is matched to clinical indication); or iterative reconstruction. Contrast material: [id number]; Contrast volume: 100 ml; Contrast route: INTRAVENOUS (IV); COMPARISON: CT Abdomen Pelvis w Cont 03/27/2017 1:27 AM FINDINGS: Pleural space: Small focal area of pleural thickening involving the right lower lung anteriorly measuring 1.9 cm stable in size and appearance since the prior study dating 03/27/2017 Liver: Normal. No mass. Gallbladder and bile ducts: Status post cholecystectomy. Pancreas: Normal. No ductal dilation. Spleen: Normal. No splenomegaly. Adrenals: Normal. No mass. Kidneys and ureters: Normal. No hydronephrosis. Stomach and bowel: In fluid-filled loops of small bowel throughout the mid abdomen suggestive of an ileus. Appendix: Normal appendix right lower quadrant. September | Final Radiology Report CONFIDENTIALITY STATEMENT This report is intended only for use by the referring physician, and only in accordance with law. If you received this in error, call [phone]. Page 2 of 2 Intraperitoneal space: Unremarkable. No free air. No significant fluid collectio n. Vasculature: Unremarkable. No abdominal aortic aneurysm. Lymph nodes: Unremarkable. No enlarged lymph nodes. Bladder: Unremarkable as visualized. Reproductive: IUD in good position within the midbody of the uterus. Bones/joints: Unremarkable. No acute fracture. Soft tissues: Unremarkable. IMPRESSION: 1. Normal appendix right lower quadrant. 2. Fluid-filled loops of large and small bowel consistent with an ileus. Please correlate clinically for a gastroenteritis. Thank you for allowing us to participate in the care of your patient. Dictated and Authenticated by: Randy Duncan MD 11/21/2019 3:30 AM Central Time ([place] & [place]) See radiologist report - Re-Assessments/Exams Free Text/Narrative Re-Assessment/Exam: 11/21/19 04:31 Discussed patient case with Dr. Gongora who agreed to accept the patient for observation admission. Departure - Departure Time of Disposition: 04:31 Disposition: Refer to Observation Condition: Fair Clinical Impression: Ileus - Discharge Information *PRESCRIPTION DRUG MONITORING PROGRAM REVIEWED*: No *COPY OF PRESCRIPTION DRUG MONITORING REPORT IN PATIENT JACOB: No Forms: ED Department Discharge Sepsis Event Note (ED) - Evaluation Sepsis Screening Result: No Definite Risk - Focused Exam Vital Signs: Vital Signs Temp Pulse Resp BP Pulse Ox 11/21/19 02:16 97.9 F 90 24 H 99/69 97 - My Orders Last 24 Hours: My Active Orders 11/21/19 02:15 Sodium Chloride 0.9% [Saline Flush] 10 ml FLUSH ASDIRECTED PRN Peripheral IV Insertion Adult [OM.PC] Stat 11/21/19 02:16 Peripheral IV Care [RC] . DIRECTED 11/21/19 04:04 Gastrointestinal Tube Mgmt [RC] ASDIRECTED NG [Nasogastric Orogastric Tube Insertion] [OM.PC] Routine 11/21/19 04:25 Admission Diagnosis [ADT] Stat Patient Status [ADT] Routine - Assessment/Plan Last 24 Hours: My Active Orders 11/21/19 02:15 Sodium Chloride 0.9% [Saline Flush] 10 ml FLUSH ASDIRECTED PRN Peripheral IV Insertion Adult [OM.PC] Stat 11/21/19 02:16 Peripheral IV Care [RC] . DIRECTED 11/21/19 04:04 Gastrointestinal Tube Mgmt [RC] ASDIRECTED NG [Nasogastric Orogastric Tube Insertion] [OM.PC] Routine 11/21/19 04:25 Admission Diagnosis [ADT] Stat Patient Status [ADT] Routine"
[2019-11-21 02:52] LABS: ANION GAP 13.8 mEq/L (7-13); CHLORIDE,CL 103 mmol/L (98-107); SODIUM,NA 139 mmol/L (136-145)
--- NOTE | 2019-11-21 03:30 | CT ---
PROCEDURE INFORMATION: Exam: CT Abdomen And Pelvis With Contrast Exam date and time: 11/21/2019 2:41 AM Age: 49 years old Clinical indication: Other: Wbc 12,200; Additional info: Abdominal pain, distended TECHNIQUE: Imaging protocol: Computed tomography of the abdomen and pelvis with intravenous contrast. Radiation optimization: All CT scans at this facility use at least one of these dose optimization techniques: automated exposure control; mA and/or kV adjustment per patient size (includes targeted exams where dose is matched to clinical indication); or iterative reconstruction. Contrast material: [id number]; Contrast volume: 100 ml; Contrast route: INTRAVENOUS (IV); COMPARISON: CT Abdomen Pelvis w Cont 03/27/2017 1:27 AM FINDINGS: Pleural space: Small focal area of pleural thickening involving the right lower lung anteriorly measuring 1.9 cm stable in size and appearance since the prior study dating 03/27/2017 Liver: Normal. No mass. Gallbladder and bile ducts: Status post cholecystectomy. Pancreas: Normal. No ductal dilation. Spleen: Normal. No splenomegaly. Adrenals: Normal. No mass. Kidneys and ureters: Normal. No hydronephrosis. Stomach and bowel: In fluid-filled loops of small bowel throughout the mid abdomen suggestive of an ileus. Appendix: Normal appendix right lower quadrant. Intraperitoneal space: Unremarkable. No free air. No significant fluid collection. Vasculature: Unremarkable. No abdominal aortic aneurysm. Lymph nodes: Unremarkable. No enlarged lymph nodes. Bladder: Unremarkable as visualized. Reproductive: IUD in good position within the midbody of the uterus. Bones/joints: Unremarkable. No acute fracture. Soft tissues: Unremarkable. IMPRESSION: 1. Normal appendix right lower quadrant. 2. Fluid-filled loops of large and small bowel consistent with an ileus. Please correlate clinically for a gastroenteritis.
[2019-11-21] MEDS ORDERED: Ondansetron 4 MG/2 ML SDV IVPUSH PRN (05:06)
[2019-11-21] MEDS: Dextrose 5%-0.9% NaCl 500 ML IV SCH (05:18)
--- NOTE | 2019-11-21 05:56 | PCM.HP ---
H&P History of Present Illness - General Date of Service: 11/21/19 Admit Problem/Dx: Admission Diagnosis/Problem Admission Diagnosis/Problem Ileus Source of Information: Patient, EMS Notes Reviewed History Limitations: Reports: No Limitations - History of Present Illness Initial Comments - Free Text/Narative: Mrs. Tayler Luis is a 49-year-old female with medical history significant for type 2 diabetes mellitus, adjustment disorder, and history of depression, GERD and abdominal bloating with constipation, Patient presents to ER with complaint of severe upper abdominal pain which wraps around to the flank and back, as well as bloating and distention. Rates pain 11/15. Patient states she has been following with [place] since October 25 with abdominal pain. atient denies any imaging being done at [place] States she did collect a stool sample, and was called and told she had an infection in her colon, and started on oral vancomycin. Patient states prior to starting the vancomycin she normally was constipated needing to use laxatives about every 5 days. Patient states since she has been taking the vancomycin she has had softer, and lose. Patient states stools have been black. Denies chest pains or shortness of breath. Patient states she has had her gallbladder removed, but still has her appendix. Patient states she has had GI problems for several years, for which she was seen by Dr. Suárez. Pt had EGD done on 11/25/16 and it was normal stud y. Pt had CT abd/Pelvis with contrast on 11/21/19: Impression Normal appendix right lower quadrant. Fluid Filled loos of large and small bowel consistent with an ileus. please correlate clinically for gastroenteritis. her amylase and lipase are in the normal range, in ER NG placed with very little suctioned out. she still has abdominal pain. 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 but the issue with bloating has been going on for 7-8 years. Onset of Symptoms: Reports: Gradual Duration of Symptoms: Reports: Day(s): Associated Symptoms: Reports: Nausea/Vomiting Abdominal Pain Score (Numeric/FACES): 8 - Related Data Allergies/Adverse Reactions: Allergies Allergy/AdvReac Type Severity Reaction Status Date / Time No Known Allergies Allergy Verified 07/11/19 19:09 Home Medications: Home Meds Fenofibrate [Fenoglide] 135 mg PO DAILY 09/07/13 [History] Omeprazole 20 mg PO BID 09/07/13 [History] metFORMIN HCl [Metformin HCl] 1,000 mg PO BID 09/07/13 [History] glyBURIDE [Glyburide] 10 mg PO BID 09/08/13 [History] Acetaminophen [Tylenol] 2 tab PO ASDIRECTED PRN 02/06/14 [History] Aspirin [Halfprin] 81 mg PO DAILY 11/04/14 [History] Insulin Aspart Prot/Insuln Asp [Novolog Mix 70-30 Flexpen Syrn] 30 units SQ BIDMEALS 11/26/16 [History] Levonorgestrel [Mirena] 1 device VAG ASDIRECTED 11/26/16 [History] Saxagliptin HCl [Onglyza] 0.5 tab PO DAILY 11/26/16 [History] Ergocalciferol (Vitamin D2) [Vitamin D2] 50,000 units PO Q7D 11/27/16 [History] atorvaSTATin [Lipitor] 1 tab PO BEDTIME 11/27/16 [History] Cholecalciferol (Vitamin D3) [Vitamin D3] 1,000 unit PO DAILY 11/21/19 [History] Past Medical History HEENT History: Reports: Impaired Vision Other HEENT History: WEARS CORRECTIVE LENSES Respiratory History: Reports: None Gastrointestinal History: Reports: GERD Genitourinary History: Reports: None Other OB/BYN History: 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 ADJUSTMENT DISORDER Endocrine/Metabolic History: Reports: Diabetes, Type II Hematologic History: Reports: Anemia Immunologic History: Reports: None Oncologic (Cancer) History: Reports: None Other Dermatologic History: ECZEMA ON BILAT ARMS & HANDS - Infectious Disease History Infectious Disease History: Reports: Chicken Pox, Measles, Mumps - Past Surgical History HEENT Surgical History: Reports: Oral Surgery Other HEENT Surgeries/Procedures: WISDOM TEETH EXTRACTION X4 GI Surgical History: Reports: Cholecystectomy, Colonoscopy, EGD Female Surgical History: Reports: Section, LEEP, Salpingo- Oophorectomy, Tubal Ligation Other Female Surgeries/Procedures: VAGINAL CERVICAL LEEP TREATMENT, SALPINGO- OOPHRECTOMY RIGHT, TUBUAL BLOCK BY DEVICE Social & Family History - Family History Family Medical History: Noncontributory - Tobacco Use Smoking Status *Q: Current Every Day Smoker Years of Tobacco use: 8 Packs/Tins Daily: 0.5 Second Hand Smoke Exposure: Yes - Caffeine Use Caffeine Use: Reports: None - Recreational Drug Use Recreational Drug Use: No H&P Review of Systems - Review of Systems: Review Of Systems: See Below General: Denies: Fever, Chills, Decreased Appetite HEENT: Denies: Headaches, Sinus Congestion, Sore Throat, Visual Changes Pulmonary: Denies: Shortness of Breath, Wheezing, Cough, Sputum, Hemoptysis Cardiovascular: Denies: Chest Pain, Lightheadedness, Blood Pressure Problem Gastrointestinal: Reports: Abdominal Pain, Distension, Nausea, Vomiting Genitourinary: Denies: Dysuria, Frequency, Flank Pain Musculoskeletal: Denies: Neck Pain, Leg Pain, Muscle Stiffness Skin: Denies: Cyanosis, Jaundice, Bruising, Pruritis, Rash Psychiatric: Reports: Anxiety Neurological: Denies: Confusion, Seizure, Tremors, Weakness Hematologic/Lymphatic: Reports: No Symptoms Immunologic: Reports: No Symptoms Exam - Exam Exam: See Below - Vital Signs Vital Signs: Last Vital Signs Temp 36.7 C 11/21/19 04:36 Pulse 81 11/21/19 04:36 Resp 18 11/21/19 04:36 BP 112/64 11/21/19 04:36 Pulse Ox 97 11/21/19 04:36 Weight: 86.908 kg - Exam Quality Assessment: DVT Prophylaxis. No: Supplemental Oxygen, Urinary Catheter General: Alert, Oriented, Cooperative HEENT: Conjunctiva Clear, EOMI, Mucosa Moist & [place], Pupils Equal Neck: Supple. No: JVD, Thyromegaly Lungs: Clear to Auscultation, Normal Respiratory Effort. No: Wheezing Cardiovascular: Regular Rate, Regular Rhythm, Normal S1, Normal S2 GI/Abdominal Exam: Other (hyperactive bowel sound). No: Guarding, Rigid, Rebound, Tender (Female) Exam: Deferred Rectal (Female) Exam: Deferred Extremities: Normal Inspection, No Pedal Edema Skin: Warm, Dry, Intact Neurological: Cranial Nerves Intact, Reflexes Equal Bilateral Neuro Extensive - Mental Status: Alert, Oriented x3, Normal Mood/Affect, Normal Cognition, Memory Intact Neuro Extensive - Motor, Sensory, Reflexes: CN II-XII Intact, Normal Gait, Normal Reflexes Psychiatric: Alert, Normal Affect, Normal Mood - Patient Data Lab Results Last 24 hrs: Laboratory Results - last 24 hr 11/21/19 11/21/19 11/21/19 Range/Units 02:15 02:19 02:19 WBC 12.8 H (5.0-10.0) 10^3/uL RBC 4.52 (4.2-5.4) 10^6/uL Hgb 13.1 (12.0-16.0) g/dL Hct 39.8 (37.0-47.0) % MCV 88.1 D (80-100) fL MCH 29.0 (27.0-34.0) pg MCHC 32.9 L (33.0-35.0) g/dL Plt Count 220 (150-450) 10^3/uL Neut % (Auto) 55.6 (42.2-75.2) % Lymph % (Auto) 35.1 (20.5-50.1) % [place] % (Auto) 6.4 (2-8) % Eos % (Auto) 2.7 (1.0-3.0) % Baso % (Auto) 0.2 (0.0-1.0) % Sodium 139 (136-145) mmol/L Potassium 3.8 (3.5-5.1) mmol/L Chloride 103 (98-107) mmol/L Carbon Dioxide 26 (21-32) mmol/L Anion Gap 13.8 H (7-13) mEq/L BUN 10 (7-18) mg/dL Creatinine 0.80 (0.55-1.02) mg/dL Est Cr Clr Drug Dosing 74.26 mL/min Estimated GFR (MDRD) > 60 BUN/Creatinine Ratio 12.5 (No establ ref range) Glucose 236 H (74-99) mg/dL Lactic Acid (0.4-2.0) mmol/L Calcium 9.1 (8.5-10.1) mg/dL Total Bilirubin 0.4 (0.2-1.0) mg/dL AST 32 (15-37) U/L ALT 54 (14-59) U/L Alkaline Phosphatase 106 (46-116) U/L Total Protein 8.0 (6.4-8.2) g/dL Albumin 3.7 (3.4-5.0) g/dL Globulin 4.3 Albumin/Globulin Ratio 0.9 Amylase 61 (25-115) U/L Lipase 211 (73-393) U/L Urine Color (YELLOW) Urine Appearance (CLEAR) Urine pH (5.0-9.0) Ur Specific [place] (1.005-1.030) Urine Protein (NEGATIVE) Urine Glucose (UA) (NEGATIVE) Urine Ketones (NEGATIVE) Urine Occult Blood (NEGATIVE) Urine Nitrite (NEGATIVE) Urine Bilirubin (NEGATIVE) Urine Urobilinogen (0.2-1.0) mg/dL Ur Leukocyte Esterase (NEGATIVE) 11/21/19 11/21/19 Range/Units 02:19 02:28 WBC (5.0-10.0) 10^3/uL RBC (4.2-5.4) 10^6/uL Hgb (12.0-16.0) g/dL Hct (37.0-47.0) % MCV (80-100) fL MCH (27.0-34.0) pg MCHC (33.0-35.0) g/dL Plt Count (150-450) 10^3/uL Neut % (Auto) (42.2-75.2) % Lymph % (Auto) (20.5-50.1) % [place] % (Auto) (2-8) % Eos % (Auto) (1.0-3.0) % Baso % (Auto) (0.0-1.0) % Sodium (136-145) mmol/L Potassium (3.5-5.1) mmol/L Chloride (98-107) mmol/L Carbon Dioxide (21-32) mmol/L Anion Gap (7-13) mEq/L BUN (7-18) mg/dL Creatinine (0.55-1.02) mg/dL Est Cr Clr Drug Dosing mL/min Estimated GFR (MDRD) BUN/Creatinine Ratio (No establ ref range) Glucose (74-99) mg/dL Lactic Acid 1.3 (0.4-2.0) mmol/L Calcium (8.5-10.1) mg/dL Total Bilirubin (0.2-1.0) mg/dL AST (15-37) U/L ALT (14-59) U/L Alkaline Phosphatase (46-116) U/L Total Protein (6.4-8.2) g/dL Albumin (3.4-5.0) g/dL Globulin Albumin/Globulin Ratio Amylase (25-115) U/L Lipase (73-393) U/L Urine Color Yellow (YELLOW) Urine Appearance Slightly cloudy (CLEAR) Urine pH 6.0 (5.0-9.0) Ur Specific [place] >= 1.030 (1.005-1.030) Urine Protein Negative (NEGATIVE) Urine Glucose (UA) 100 H (NEGATIVE) Urine Ketones Negative (NEGATIVE) Urine Occult Blood Negative (NEGATIVE) Urine Nitrite Negative (NEGATIVE) Urine Bilirubin Negative (NEGATIVE) Urine Urobilinogen 0.2 (0.2-1.0) mg/dL Ur Leukocyte Esterase Negative (NEGATIVE) Result Diagrams: 11/21/19 02:19 11/21/19 02:19 Bret Results Last 24 hrs: Microbiology 11/21/19 03:13 Stool Occult Blood (BRET) - Final Stool / Feces - Problem List (1) Back pain SNOMED Code(s): 017336724 ICD Code: M54.9 - DORSALGIA, UNSPECIFIED Status: Acute Current Visit: Yes (2) Ileus SNOMED Code(s): 602438610 ICD Code: K56.7 - ILEUS, UNSPECIFIED Status: Acute Current Visit: Yes (3) Diabetes mellitus SNOMED Code(s): 06962033 ICD Code: E11.9 - TYPE 2 DIABETES MELLITUS WITHOUT COMPLICATIONS Status: Acute Current Visit: No Problem List Initiated/Reviewed/Updated: Yes Orders Last 24hrs: Active Orders 24 hr Category Date Time Status Admission Diagnosis [ADT] Stat ADT 11/21/19 04:25 Ordered Patient Status [ADT] Routine ADT 11/21/19 04:25 Active Gastrointestinal Tube Mgmt [RC] Care 11/21/19 04:04 Active Peripheral IV Care [RC] . DIRECTED Care 11/21/19 02:16 Active Nothing Per Oral Diet [DIET] Diet 11/21/19 Breakfast Active Dextrose 5%-0.9% NaCl [Dextrose 5%-Normal Saline] 500 Med 11/21/19 05:15 Active ml IV ASDIRECTED Ondansetron [Zofran] Med 11/21/19 05:06 Active 4 mg IVPUSH Q6H PRN Sodium Chloride 0.9% [Saline Flush] Med 11/21/19 02:15 Active 10 ml FLUSH ASDIRECTED PRN NG [Nasogastric Orogastric Tube Insertion] [OM.PC] Oth 11/21/19 04:04 Ordered Routine Peripheral IV Insertion Adult [OM.PC] Stat Ot 11/21/19 02:15 Ordered Medication Orders Dextrose/Sodium Chloride (Dextrose 5%-Normal Saline) 500 mls @ 50 mls/hr IV ASDIRECTED DEEJAY Last Admin: 11/21/19 05:18 Dose: 50 mls/hr Documented by: MARCIAL Ondansetron HCl (Zofran) 4 mg IVPUSH Q6H PRN PRN Reason: Nausea/Vomiting Sodium Chloride (Saline Flush) 10 ml FLUSH ASDIRECTED PRN PRN Reason: Keep Vein Open Last Admin: 11/21/19 05:21 Dose: 10 ml Documented by: Admin: 11/21/19 02:28 Dose: 10 ml Documented by: Admin: 11/21/19 02:15 Dose: 10 ml Documented by: LINDA Assessment/Plan Comment:: Mrs. Tayler Luis is a 49-year-old female with medical history significant for type 2 diabetes mellitus, adjustment disorder, and history of depression, GERD and abdominal bloating with constipation, Patient presents to ER with complaint of severe upper abdominal pain which wraps around to the flank and back. Impression and plan: 1. Ileus/gastroenteritis: the etiology is clear, she has not been passing gas - Will start D5 NS at 50 m/hr -Will continue NG suction, not much coming out -Will keep NPO and advance gradually with clear liquid -Continue zofran 4 mg IV q6 hrs 2. 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 Diabetes II: will continue blood sugar check and sliding scale insulin coverage, will hold Metformin and Glyburide 4. DVT prophylaxis: Continue Enoxaparin Code Status: Full Code
[2019-11-21] MEDS ORDERED: Cyclobenzaprine 10 MG Tab PO ONE (06:47)
[2019-11-21] MEDS ORDERED: Acetaminophen 325 MG Tab PO PRN (06:49)
[2019-11-21] MEDS ORDERED: Docusate Sodium 100 MG Cap PO PRN (06:49)
[2019-11-21] MEDS ORDERED: HYDROmorphone 1 MG/ML Syringe IVPUSH PRN (06:57)
[2019-11-21] MEDS: Enoxaparin 40 MG/0.4 ML Syringe SUBCUT SCH (09:56)
[2019-11-21] MEDS: Insulin Lispro 100 Units/ML 3 ML Vial SUBCUT SCH ×4 (10:01→21:00)
[2019-11-21] MEDS: Benzocaine/Cetylpyridinium/Menthol Lozenge MUCMEM PRN (22:01)
[2019-11-22] MEDS: Dextrose 5%-0.9% NaCl 500 ML IV SCH (00:25)
[2019-11-22] MEDS ORDERED: Dextrose 5%-0.9% NaCl 1,000 ML IV SCH (00:30)
[2019-11-22 07:06] LABS: ANION GAP 12.6 mEq/L (7-13); CHLORIDE,CL 103 mmol/L (98-107); SODIUM,NA 140 mmol/L (136-145)
[2019-11-22] MEDS: Insulin Lispro 100 Units/ML 3 ML Vial SUBCUT SCH ×4 (09:06→21:41)
[2019-11-22] MEDS: Enoxaparin 40 MG/0.4 ML Syringe SUBCUT SCH (09:08)
--- NOTE | 2019-11-22 11:58 | PCM.PN ---
- General Info Date of Service: 11/22/19 Admission Dx/Problem (Free Text): Admission Diagnosis/Problem Admission Diagnosis/Problem Ileus and back pain Subjective Update: Pt was seen in room, she is doing well her abdominal bloating has improved, passing gas and had BM today. she stated her stool is black, she is on clear liquid diet, No more nausea or Vomiting Functional Status: Reports: Pain Controlled, Tolerating Diet (liquid diet), Amb ulating, Urinating - Review of Systems General: Reports: Weakness. Denies: Fever, Chills, Night Sweats HEENT: Denies: Headaches, Sinus Congestion, Sore Throat, Visual Changes Pulmonary: Denies: Shortness of Breath, Cough, Sputum, Wheezing Cardiovascular: Denies: Chest Pain, Dyspnea on Exertion, Lightheadedness Gastrointestinal: Reports: Other (bloated). Denies: Diarrhea, Nausea, Vomiting Genitourinary: Denies: Dysuria, Burning, Urgency, Flank Pain Musculoskeletal: Reports: Back Pain. Denies: Neck Pain, Shoulder Pain, Joint Pain Skin: Denies: Cyanosis, Jaundice, Diaphoresis, Bruising, Pruritis, Rash Neurological: Reports: Weakness. Denies: Confusion, Dizziness, Headache, Tremors Psychiatric: Denies: Confusion, Anxiety, Agitation - Patient Data Vitals - Most Recent: Last Vital Signs Temp 36.7 C 11/22/19 08:20 Pulse 70 11/22/19 08:20 Resp 20 11/22/19 08:20 BP 103/55 L 11/22/19 08:20 Pulse Ox 97 11/22/19 08:20 Weight - Most Recent: 86.908 kg I&O - Last 24 Hours: Intake & Output 11/21/19 11/22/19 11/22/19 22:59 06:59 14:59 Intake Total 900 Output Total 650 1250 50 Balance -650 -1250 850 Lab Results Last 24 Hours: Laboratory Results - last 24 hr 11/21/19 11/21/19 11/22/19 Range/Units 16:54 20:57 06:02 WBC 10.5 H (5.0-10.0) 10^3/uL RBC 4.20 (4.2-5.4) 10^6/uL Hgb 12.2 (12.0-16.0) g/dL Hct 37.8 (37.0-47.0) % MCV 90.0 (80-100) fL MCH 29.0 (27.0-34.0) pg MCHC 32.3 L (33.0-35.0) g/dL Plt Count 208 (150-450) 10^3/uL Neut % (Auto) 58.4 (42.2-75.2) % Lymph % (Auto) 34.0 (20.5-50.1) % [place] % (Auto) 4.8 (2-8) % Eos % (Auto) 2.6 (1.0-3.0) % Baso % (Auto) 0.2 (0.0-1.0) % Sodium (136-145) mmol/L Potassium (3.5-5.1) mmol/L Chloride (98-107) mmol/L Carbon Dioxide (21-32) mmol/L Anion Gap (7-13) mEq/L BUN (7-18) mg/dL Creatinine (0.55-1.02) mg/dL Est Cr Clr Drug Dosing mL/min Estimated GFR (MDRD) Glucose (74-99) mg/dL POC Glucose 97 111 H (70-105) mg/dl Calcium (8.5-10.1) mg/dL 11/22/19 11/22/19 Range/Units 06:02 07:56 WBC (5.0-10.0) 10^3/uL RBC (4.2-5.4) 10^6/uL Hgb (12.0-16.0) g/dL Hct (37.0-47.0) % MCV (80-100) fL MCH (27.0-34.0) pg MCHC (33.0-35.0) g/dL Plt Count (150-450) 10^3/uL Neut % (Auto) (42.2-75.2) % Lymph % (Auto) (20.5-50.1) % [place] % (Auto) (2-8) % Eos % (Auto) (1.0-3.0) % Baso % (Auto) (0.0-1.0) % Sodium 140 (136-145) mmol/L Potassium 3.6 (3.5-5.1) mmol/L Chloride 103 (98-107) mmol/L Carbon Dioxide 28 (21-32) mmol/L Anion Gap 12.6 (7-13) mEq/L BUN 7 (7-18) mg/dL Creatinine 0.62 (0.55-1.02) mg/dL Est Cr Clr Drug Dosing 95.82 mL/min Estimated GFR (MDRD) > 60 Glucose 159 H (74-99) mg/dL POC Glucose 167 H (70-105) mg/dl Calcium 8.7 (8.5-10.1) mg/dL Med Orders - Current: Current Medications Acetaminophen (Tylenol) 650 mg PO Q4H PRN PRN Reason: Pain (mild 1-3 )/fever Benzocaine/Menthol (Cepacol Sore Throat) 1 lozenge MUCMEM Q2H PRN PRN Reason: Sore Throat Last Admin: 11/21/19 22:01 Dose: 1 lozenge Documented by: Docusate Sodium (Colace) 100 mg PO DAILY PRN PRN Reason: Constipation Enoxaparin Sodium (Lovenox) 40 mg SUBCUT DAILY [facility] Last Admin: 11/22/19 09:08 Dose: 40 mg Documented by: Hydromorphone HCl (Dilaudid) 1 mg IVPUSH Q6H PRN PRN Reason: Pain Dextrose/Sodium Chloride (Dextrose 5%-Normal Saline) 1,000 mls @ 50 mls/hr IV ASDIRECTED [facility] Insulin Human Lispro (Humalog) 0 unit SUBCUT WITHMEALSANDBED [facility]; Protocol Last Admin: 11/22/19 09:06 Dose: 2 units Documented by: Ondansetron HCl (Zofran) 4 mg IVPUSH Q6H PRN PRN Reason: Nausea/Vomiting Sodium Chloride (Saline Flush) 10 ml FLUSH ASDIRECTED PRN PRN Reason: Keep Vein Open Last Admin: 11/21/19 05:21 Dose: 10 ml Documented by: Discontinued Medications Cyclobenzaprine HCl (Flexeril) 10 mg PO ONETIME ONE Stop: 11/21/19 06:48 Last Admin: 11/21/19 07:39 Dose: 10 mg Documented by: Fentanyl (Sublimaze) 50 mcg IVPUSH ONETIME ONE Stop: 11/21/19 02:36 Last Admin: 11/21/19 02:47 Dose: 50 mcg Documented by: Dextrose/Sodium Chloride (Dextrose 5%-Normal Saline) 500 mls @ 50 mls/hr IV ASDIRECTED DEEJAY Stop: 11/22/19 00:26 Last Admin: 11/22/19 00:25 Dose: 50 mls/hr Documented by: Iopamidol (Isovue-300 (61%)) 100 ml IVPUSH ONETIME ONE Stop: 11/21/19 02:25 Last Admin: 11/21/19 02:47 Dose: 100 ml Documented by: Ondansetron HCl (Zofran) 4 mg IV ONETIME ONE Stop: 11/21/19 02:36 Last Admin: 11/21/19 02:48 Dose: 4 mg Documented by: - Exam Quality Assessment: DVT Prophylaxis. No: Supplemental Oxygen, Urine Catheter, Skin Breakdown General: Alert, Oriented, Cooperative, No Acute Distress HEENT: Pupils Equal, EOMI, Mucous Membr. Moist/[place] Neck: Supple, No JVD, No Thyromegaly Lungs: Clear to Auscultation, Normal Respiratory Effort. No: Crackles, Wheezing Cardiovascular: Regular Rate, Regular Rhythm, Murmurs GI/Abdominal Exam: Normal Bowel Sounds, Soft, Non-Tender. No: Guarding, Rebound (Female) Exam: Deferred Back Exam: Normal Inspection, Full Range of Motion Extremities: Normal Inspection, No Pedal Edema Skin: Warm, Dry, Intact Neurological: No New Focal Deficit Psy/Mental Status: Alert, Normal Affect, Normal Mood Sepsis Event Note - Evaluation Sepsis Screening Result: No Definite Risk - Focused Exam Vital Signs: Vital Signs Temp Pulse Resp BP Pulse Ox 11/22/19 08:20 36.7 C 70 20 103/55 L 97 11/22/19 06:50 97 - Problem List & Annotations (1) Back pain SNOMED Code(s): 334725787 Code(s): M54.9 - DORSALGIA, UNSPECIFIED Status: Acute Current Visit: Yes (2) Ileus SNOMED Code(s): 509862910 Code(s): K56.7 - ILEUS, UNSPECIFIED Status: Acute Current Visit: Yes (3) Diabetes mellitus SNOMED Code(s): 81978202 Code(s): E11.9 - TYPE 2 DIABETES MELLITUS WITHOUT COMPLICATIONS Status: Acute Current Visit: No - Problem List Review Problem List Initiated/Reviewed/Updated: Yes - My Orders Last 24 Hours: My Active Orders 11/21/19 Dinner Clear Liquid Diet [DIET] 11/21/19 21:15 Benzocaine/Cetylpyrd/Menthol [Cepacol Sore Throat] 1 lozenge MUCMEM Q2H PRN 11/22/19 00:30 Dextrose 5%-0.9% NaCl [Dextrose 5%-Normal Saline] 1,000 ml IV ASDIRECTED - Plan Plan:: Mrs. Tayler Luis is a 49-year-old female with medical history significant for type 2 diabetes mellitus, adjustment disorder, and history of depression, GERD and abdominal bloating with constipation, Patient presents to ER with complaint of severe upper abdominal pain which wraps around to the flank and back. Impression and plan: 1. Ileus/gastroenteritis: the etiology is clear, she has now started passing gas - Will continue D5 NS at 50 m/hr -Will continue NG suction, has significant output -Will continue with clear liquid diet -Continue zofran 4 mg IV q6 hrs 2. 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 Diabetes II: will continue blood sugar check and sliding scale insulin coverage, will hold Metformin and Glyburide 4. DVT prophylaxis: Continue Enoxaparin 5. Black stool: will check stool for occult blood Code Status: Full Code
[2019-11-22] MEDS: Benzocaine/Cetylpyridinium/Menthol Lozenge MUCMEM PRN (21:41)
[2019-11-23] MEDS: Insulin Lispro 100 Units/ML 3 ML Vial SUBCUT SCH ×2 (08:23→12:12)
[2019-11-23] MEDS: Enoxaparin 40 MG/0.4 ML Syringe SUBCUT SCH (08:24)
--- NOTE | 2019-11-23 13:04 | PN ---
DATE: 11/23/2019 SUBJECTIVE: The patient is a 49-year-old female with history of type 2 diabetes mellitus, history of depression, gastroesophageal reflux, admitted with abdominal bloating and constipation, and CAT scan of the abdomen and pelvis showed normal appendix, but there are some large and small bowel fluid-filled loops consistent with ileus. She was placed on NG tube and the patient got better, and now she is on clear liquid diet and she seems to be tolerating it. She is still complaining of some mild epigastric discomfort, but she denies any fever, chills, or any more nausea or vomiting or diarrhea. OBJECTIVE: Vital Signs: Blood pressure is 116/58, pulse of 68, respirations 20, saturation is 99% on room air. Heart: Regular rate and rhythm. Normal S1 and S2. No gallops. No rubs. Lungs: Equal bilaterally. No crackles. No wheezing. Abdomen: Soft. Bowel sounds positive. There is mild direct tenderness on the epigastric area. No rebound. Extremities: Negative for any significant pedal edema, nor tenderness. PLAN: We will advance her diet to consistent carbohydrate, and I am also going to restart her omeprazole as at home, and if the patient continues to do well, anticipate discharge in a.m. [facility] /[id number]
[2019-11-23 13:07] VITALS: BP 117/61; PULSE 71
[2019-11-23] MEDS ORDERED: Omeprazole 20 MG Cap.CR PO SCH (16:00)
--- NOTE | 2019-11-24 08:38 | DISCH ---
FINAL DIAGNOSES: 1. Ileus. 2. Gastroenteritis. 3. Type 2 diabetes mellitus. 4. Gastroesophageal reflux. BRIEF HISTORY OF PRESENT ILLNESS: Please see H and P. PERTINENT LAB, X-RAY, AND OTHER TESTS: Please see H and P. CAT scan of the abdomen and pelvis showed normal appendix and there are fluid-filled loops of large and small bowel consistent with ileus. HOSPITAL COURSE: The patient was admitted to General Medicine floor. NG tube was inserted and was connected to low intermittent suction, and the patient did well, and NG tube was discontinued, and she was started on clear liquid diet which she tolerated well and this advanced to regular diet and she tolerated it well. The rest of the hospital course was unremarkable. The patient was feeling good that she requested to be discharged. CONDITION ON DISCHARGE: Improved. DISCHARGE INSTRUCTIONS: We will resume her home medication and she is to follow up with her primary care provider in 1 [address] for a recheck. [facility] /[id number]
== END 2019-11-23 16:26 | disposition home or self-care (01) ==
LOC: DL.ED 02:04 → DL.MS 04:25
PROVIDERS: ADMIT Internal Medicine Nephrology; ATTEND Internal Medicine
DX: K56.7 Ileus, unspecified (principal); K52.9 Noninfective gastroenteritis and colitis, unspecified; K21.9 Gastro-esophageal reflux disease without esophagitis; E11.9 Type 2 diabetes mellitus without complications; F32.9 Major depressive disorder, single episode, unspecified; F43.20 Adjustment disorder, unspecified; F17.210 Nicotine dependence, cigarettes, uncomplicated; M54.9 Dorsalgia, unspecified; K92.1 Melena; Z79.82 Long term (current) use of aspirin; Z79.899 Other long term (current) drug therapy; Z79.4 Long term (current) use of insulin; Z98.890 Other specified postprocedural states
CPT/HCPCS: 36415; 43752; 74177; 80048; 80053; 81003; 82150; 82272; 82962; 83605; 83690; 85025; 96361; 96372; 96374; 96375; 99285; A9270; G0378; J1650; J1815; J2405; J3010; J7042; Q9967; 99284

== ENCOUNTER 2020-09-09 20:44 | Emergency (ER) | payer BC, OTHER ==
[2020-09-09] MEDS ORDERED: Ondansetron 4 MG/2 ML SDV IVPUSH ONE (21:11)
[2020-09-09] MEDS ORDERED: Sodium Chloride 0.9% 1,000 ML IV ONE ×2 (21:11→22:33)
--- NOTE | 2020-09-09 21:31 | EDM.PDOC ---
ED HPI GENERAL MEDICAL PROBLEM - General Chief Complaint: Abdominal Pain Stated Complaint: STOMACH PAIN / VOMITING Time Seen by Provider: 09/09/20 21:23 Source of Information: Reports: Patient, RN, RN Notes Reviewed History Limitations: Reports: No Limitations - History of Present Illness INITIAL COMMENTS - FREE TEXT/NARRATIVE: Tayler is a 50 y/o female who presents to the ED via personal vehicle with complaints of abdominal pain and vomiting. The patient reports the pain to her abdomen began yesterday and has waxed and waned in severity. She characterizes the pain as a cramping that is diffuse to the abdomen, but notes it is worse in the bilateral upper quadrants. The patient reports the pain radiates into her back from the bilateral upper quadrants. Laying down makes the pain worse while standing and moving provides some relief. Additionally, the patient reports she started experiencing nausea and bilious vomiting today. She denies recent illness, fever, shaking chills, dyspepsia, dysuria, hematuria, constipation, or diarrhea. She notes her last bowel movement was yesterday and was watery in consistency. She attests to smoking 1/2 pack of cigarettes per day; she denies alcohol or recreational drug use. Abdomen Pain Score (Numeric/FACES): 9 - Related Data Allergies Allergy/AdvReac Type Severity Reaction Status Date / Time No Known Allergies Allergy Verified 09/09/20 21:03 Home Meds: Home Meds Fenofibrate [Fenoglide] 135 mg PO DAILY 09/07/13 [History] Omeprazole 20 mg PO BID 09/07/13 [History] metFORMIN HCl [Metformin HCl] 1,000 mg PO BID 09/07/13 [History] glyBURIDE [Glyburide] 10 mg PO BID 09/08/13 [History] Acetaminophen [Tylenol] 2 tab PO ASDIRECTED PRN 02/06/14 [History] Aspirin [Halfprin] 81 mg PO DAILY 11/04/14 [History] Insulin Aspart Prot/Insuln Asp [Novolog Mix 70-30 Flexpen Syrn] 50 units SQ BIDMEALS 11/26/16 [History] Levonorgestrel [Mirena] 1 device VAG ASDIRECTED 11/26/16 [History] Saxagliptin HCl [Onglyza] 0.5 tab PO DAILY 11/26/16 [History] Ergocalciferol (Vitamin D2) [Vitamin D2] 50,000 units PO Q7D 11/27/16 [History] atorvaSTATin [Lipitor] 1 tab PO BEDTIME 11/27/16 [History] Cholecalciferol (Vitamin D3) [Vitamin D3] 1,000 unit PO DAILY 11/21/19 [History] Ibuprofen [Motrin] 800 mg PO Q6HR PRN 09/09/20 [History] Past Medical History HEENT History: Reports: Impaired Vision Other HEENT History: WEARS CORRECTIVE LENSES Respiratory History: Reports: None Gastrointestinal History: Reports: GERD Genitourinary History: Reports: None 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 ADJUSTMENT DISORDER Endocrine/Metabolic History: Reports: Diabetes, Type II Hematologic History: Reports: Anemia Immunologic History: Reports: None Oncologic (Cancer) History: Reports: None Other Dermatologic History: ECZEMA ON BILAT ARMS & HANDS - Infectious Disease History Infectious Disease History: Reports: Chicken Pox, Measles, Mumps - Past Surgical History HEENT Surgical History: Reports: Oral Surgery Other HEENT Surgeries/Procedures: WISDOM TEETH EXTRACTION X4 GI Surgical History: Reports: Cholecystectomy, Colonoscopy, EGD Female Surgical History: Reports: Section, LEEP, Salpingo- Oophorectomy, Tubal Ligation Other Female Surgeries/Procedures: VAGINAL CERVICAL LEEP TREATMENT, SALPINGO- OOPHRECTOMY RIGHT, TUBUAL BLOCK BY DEVICE Social & Family History - Family History Family Medical History: No Pertinent Family History - Tobacco Use Tobacco Use Status *Q: Current Every Day Tobacco User Years of Tobacco use: 10 Packs/Tins Daily: 0.4 - Caffeine Use Caffeine Use: Reports: Coffee - Recreational Drug Use Recreational Drug Use: No ED ROS GENERAL - Review of Systems Review Of Systems: Comprehensive ROS is negative, except as noted in HPI. ED EXAM, GI/ABD - Physical Exam Exam: See Below Exam Limited By: No Limitations General Appearance: Alert, Mild Distress (Abdominal pain) Eyes: Bilateral: Normal Appearance, EOMI Throat/Mouth: Normal Voice, No Airway Compromise. No: Normal Oropharynx (Dry mucous membranes) Head: Atraumatic, Normocephalic Respiratory/Chest: No Respiratory Distress, Lungs Clear, Normal Breath Sounds, No Accessory Muscle Use, Chest Non-Tender Cardiovascular: Normal Peripheral Pulses, Regular Rate, Rhythm, No Edema, No Gallop, No JVD, No Murmur, No Rub GI/Abdominal Exam: Normal Bowel Sounds, Soft, No Distention, No Abnormal Bruit, No Mass, Pelvis Stable, Tender (Bilateral lower quadrants to palpation) (Female) Exam: Deferred Rectal (Female) Exam: Deferred Back Exam: Normal Inspection, Full Range of Motion, CVA Tenderness (L), CVA Tenderness (R) Extremities: Normal Inspection, Normal Range of Motion, Non-Tender, No Pedal Edema, Normal Capillary Refill Neurological: Alert, Oriented, CN II-XII Intact, Normal Cognition, Normal Gait, No Motor/Sensory Deficits Psychiatric: Anxious, Tearful Skin Exam: Warm, Dry, Intact, Normal Color, No Rash. No: Ecchymosis, Erythema, Jaundice, Mottled, Pallor, Petechiae Course - Vital Signs Last Recorded V/S: Last Vital Signs Temp 98.4 F 09/10/20 02:40 Pulse 76 09/10/20 02:40 Resp 19 09/10/20 02:40 BP 129/78 09/10/20 02:40 Pulse Ox 97 09/10/20 02:40 - Orders/Labs/Meds Labs: Laboratory Tests 09/09/20 09/09/20 09/09/20 Range/Units 21:31 21:31 21:31 WBC 17.9 H (5.0-10.0) 10^3/uL RBC 5.04 (4.2-5.4) 10^6/uL Hgb 14.2 D (12.0-16.0) g/dL Hct 43.4 (37.0-47.0) % MCV 86.1 D (80-100) fL MCH 28.2 (27.0-34.0) pg MCHC 32.7 L (33.0-35.0) g/dL Plt Count 269 (150-450) 10^3/uL Neut % (Auto) 76.9 H (42.2-75.2) % Lymph % (Auto) 16.9 L (20.5-50.1) % [place] % (Auto) 5.6 (2-8) % Eos % (Auto) 0.3 L (1.0-3.0) % Baso % (Auto) 0.3 (0.0-1.0) % Sodium 134 L (136-145) mmol/L Potassium 4.8 (3.5-5.1) mmol/L Chloride 98 (98-107) mmol/L Carbon Dioxide 24 (21-32) mmol/L Anion Gap 16.8 H (7-13) mEq/L BUN 20 H (7-18) mg/dL Creatinine 2.60 H D (0.55-1.02) mg/dL Est Cr Clr Drug Dosing 22.60 mL/min Estimated GFR (MDRD) 20 BUN/Creatinine Ratio 7.7 (No establ ref range) Glucose 194 H (70-99) mg/dL Lactic Acid 1.4 (0.4-2.0) mmol/L Calcium 9.2 (8.5-10.1) mg/dL Magnesium 1.6 L (1.8-2.4) mg/dL Total Bilirubin 0.7 (0.2-1.0) mg/dL AST 40 H (15-37) U/L ALT 68 H (14-59) U/L Alkaline Phosphatase 132 H (46-116) U/L C-Reactive Protein 0.8 (0.0-0.9) mg/dL Total Protein 8.4 H (6.4-8.2) g/dL Albumin 4.0 (3.4-5.0) g/dL Globulin 4.4 Albumin/Globulin Ratio 0.9 Amylase (25-115) U/L Lipase (73-393) U/L Urine Color (YELLOW) Urine Appearance (CLEAR) Urine pH (5.0-9.0) Ur Specific [place] (1.005-1.030) Urine Protein (NEGATIVE) Urine Glucose (UA) (NEGATIVE) Urine Ketones (NEGATIVE) Urine Occult Blood (NEGATIVE) Urine Nitrite (NEGATIVE) Urine Bilirubin (NEGATIVE) Urine Urobilinogen (0.2-1.0) mg/dL Ur Leukocyte Esterase (NEGATIVE) Urine RBC /HPF Urine WBC (0-5/HPF) /HPF Ur Epithelial Cells (NOT SEEN) /HPF Amorphous Sediment (NOT SEEN) /HPF Urine Bacteria (0-FEW/HPF) /HPF Urine Mucus (NOT SEEN) /LPF Urine Opiates Screen (NEGATIVE) Ur Oxycodone Screen (NEGATIVE) Urine Methadone Screen (NEGATIVE) Ur Barbiturates Screen (NEGATIVE) U Tricyclic Antidepress (NEGATIVE) Ur Phencyclidine Scrn (NEGATIVE) Ur Amphetamine Screen (NEGATIVE) U Methamphetamines Scrn (NEGATIVE) Urine MDMA Screen (NEGATIVE) U Benzodiazepines Scrn (NEGATIVE) Urine Cocaine Screen (NEGATIVE) U Marijuana (THC) Screen (NEGATIVE) Ethyl Alcohol < 3 (0) mg/dL 09/09/20 09/10/20 09/10/20 Range/Units 21:31 01:16 01:16 WBC (5.0-10.0) 10^3/uL RBC (4.2-5.4) 10^6/uL Hgb (12.0-16.0) g/dL Hct (37.0-47.0) % MCV (80-100) fL MCH (27.0-34.0) pg MCHC (33.0-35.0) g/dL Plt Count (150-450) 10^3/uL Neut % (Auto) (42.2-75.2) % Lymph % (Auto) (20.5-50.1) % [place] % (Auto) (2-8) % Eos % (Auto) (1.0-3.0) % Baso % (Auto) (0.0-1.0) % Sodium (136-145) mmol/L Potassium (3.5-5.1) mmol/L Chloride (98-107) mmol/L Carbon Dioxide (21-32) mmol/L Anion Gap (7-13) mEq/L BUN (7-18) mg/dL Creatinine (0.55-1.02) mg/dL Est Cr Clr Drug Dosing mL/min Estimated GFR (MDRD) BUN/Creatinine Ratio (No establ ref range) Glucose (70-99) mg/dL Lactic Acid (0.4-2.0) mmol/L Calcium (8.5-10.1) mg/dL Magnesium (1.8-2.4) mg/dL Total Bilirubin (0.2-1.0) mg/dL AST (15-37) U/L ALT (14-59) U/L Alkaline Phosphatase (46-116) U/L C-Reactive Protein (0.0-0.9) mg/dL Total Protein (6.4-8.2) g/dL Albumin (3.4-5.0) g/dL Globulin Albumin/Globulin Ratio Amylase 70 (25-115) U/L Lipase 212 (73-393) U/L Urine Color Yellow (YELLOW) Urine Appearance Clear (CLEAR) Urine pH 5.0 (5.0-9.0) Ur Specific [place] 1.020 (1.005-1.030) Urine Protein 100 H (NEGATIVE) Urine Glucose (UA) Negative (NEGATIVE) Urine Ketones Negative (NEGATIVE) Urine Occult Blood Negative (NEGATIVE) Urine Nitrite Negative (NEGATIVE) Urine Bilirubin Negative (NEGATIVE) Urine Urobilinogen 0.2 (0.2-1.0) mg/dL Ur Leukocyte Esterase Negative (NEGATIVE) Urine RBC 0-5 /HPF Urine WBC 0-5 (0-5/HPF) /HPF Ur Epithelial Cells Occasional (NOT SEEN) /HPF Amorphous Sediment Moderate H (NOT SEEN) /HPF Urine Bacteria Few (0-FEW/HPF) /HPF Urine Mucus Rare (NOT SEEN) /LPF Urine Opiates Screen Negative (NEGATIVE) Ur Oxycodone Screen Negative (NEGATIVE) Urine Methadone Screen Negative (NEGATIVE) Ur Barbiturates Screen Negative (NEGATIVE) U Tricyclic Antidepress Negative (NEGATIVE) Ur Phencyclidine Scrn Negative (NEGATIVE) Ur Amphetamine Screen Negative (NEGATIVE) U Methamphetamines Scrn Negative (NEGATIVE) Urine MDMA Screen Negative (NEGATIVE) U Benzodiazepines Scrn Negative (NEGATIVE) Urine Cocaine Screen Negative (NEGATIVE) U Marijuana (THC) Screen Negative (NEGATIVE) Ethyl Alcohol (0) mg/dL Meds: Medications Discontinued Medications Generic Name Dose Route Start Last Admin Trade Name Freq PRN Reason Stop Dose Admin Sodium Chloride 1,000 mls @ 999 mls/hr 09/09/20 21:11 09/09/20 21:52 Normal Saline IV 09/09/20 22:11 999 mls/hr .BOLUS ONE Administration Sodium Chloride 1,000 mls @ 999 mls/hr 09/09/20 22:33 09/09/20 22:51 Normal Saline IV 09/09/20 23:33 999 mls/hr .BOLUS ONE Administration Magnesium Sulfate 2 gm/ Premix 50 mls @ 25 mls/hr 09/09/20 23:10 09/09/20 23:21 IV 09/10/20 01:09 25 mls/hr ONETIME ONE Administration Ondansetron HCl 4 mg 09/09/20 21:11 09/09/20 21:52 Ondansetron 4 Mg/2 Ml Sdv IVPUSH 09/09/20 21:12 4 mg ONETIME ONE Administration - Radiology Interpretation Free Text/Narrative:: [facility] [place] [facility] Final Radiology Report Call: [phone] assistance Online chat: [email or web address] Name: NISHA SEPTEMBER Age: 50Years F Date: 09/09/2020 SSN: -- : [id number] Study: CT ABDOMEN PELVIS WO CONT Requesting Physician: Zainab Bain Images: [id number] Addl Studies: Provided Clinical History: r/o pyelo or calculi; WBC 17k Contrast: Without Contrast Medium: Contrast Amount: Contrast Method: Page 1 of 2 PROCEDURE INFORMATION: Exam: CT Abdomen And Pelvis Without Contrast Exam date and time: 09/09/2020 11:33 PM Age: 50 years old Clinical indication: Other: Diffuse abd pain radiating to flank bilaterally; Additional info: R/O pyelo or calculi; Wbc 17k TECHNIQUE: Imaging protocol: Computed tomography of the abdomen and pelvis without contrast. Radiation optimization: All CT scans at this facility use at least one of these dose optimization techniques: automated exposure control; mA and/or kV adjustment per patient size (includes targeted exams where dose is matched to clinical indication); or iterative reconstruction. COMPARISON: CT Abdomen Pelvis w Cont 03/21/2020 10:33 AM FINDINGS: Lungs: The visualized lung bases are clear. Liver: There is a diffuse decrease in hepatic parenchymal density, consistent with severe hepatic steatosis. There is mild enlargement of the liver. No focal liver lesion is seen. Gallbladder and bile ducts: Status post cholecystectomy. Pancreas: The pancreas is normal. Spleen: The spleen is normal. Adrenal glands: The adrenal glands are normal. Kidneys and ureters: The kidneys are normal. No hydronephrosis. No visible calculi. The ureters are normal. Stomach and bowel: Mild diffuse diverticulosis is present in the colon. There is no evidence of colitis/diverticulitis. Non-specific/nonobstructive intestinal gas pattern. Appendix: A normal appendix is identified. Intraperitoneal space: No free intraperitoneal air. No free intraperitoneal fluid. Vasculature: Multiple perisplenic collateral vessels noted. No change. There is no aortic aneurysm. Lymph nodes: There is no adenopathy. No pelvic adenopathy. Urinary bladder: Bladder is normal. Reproductive: The uterus is normal. No adnexal mass. The IUD is been removed. Bones/joints: No acute bony findings are identified. Soft tissues: There is no soft tissue abnormality seen. IMPRESSION: 1. Hepatic steatosis. Mild hepatomegaly. Pattern stable. 2. Perisplenic collateral vessels unchanged, consider portal hypertension. 3. A normal appendix is identified. 4. Diverticulosis.There is no evidence of colitis/diverticulitis. Thank you for allowing us to participate in the care of your patient. Dictated and Authenticated by: Fan Fox MD 09/10/2020 12:29 AM Central Time ([place] & [place]) - Re-Assessments/Exams Free Text/Narrative Re-Assessment/Exam: 09/09/20 NS 1L bolus and Zofran 4mg IVP administered while labs pending. CT abdomen pelvis obtained. Findings of examination, imaging, and lab work reviewed with patient. She states improvement in symptoms following IVF administration; will administer additional liter given KAMARI. Discussed supportive cares for KAMARI and need for follow up with primary care provider in 2-3 days. Red flag signs and symptoms which would warrant reevaluation reviewed. Patient verbalized understanding and agreement with the plan of care. Departure - Departure Time of Disposition: 02:29 Disposition: Home, Self-Care 01 Condition: Good Clinical Impression: Dehydration, Acute kidney injury, Hepatic steatosis, Diverticulosis - Discharge Information *PRESCRIPTION DRUG MONITORING PROGRAM REVIEWED*: Not Applicable *COPY OF PRESCRIPTION DRUG MONITORING REPORT IN PATIENT JACOB: Not Applicable Instructions: Dehydration, Adult, [id number] Referrals: Mehdi Cazares [Primary Care Provider] - Forms: ED Department Discharge Additional Instructions: 1.) Drink plenty of water to stay hydrated and keep your kidneys flushed out. 2.) Follow up with your primary care provider early next week regarding today's visit. 3.) Return to the emergency department with any return of abdominal/flank pain, inability to urinate, fever, or shaking chills. Sepsis Event Note (ED) - Evaluation Sepsis Screening Result: No Definite Risk
[2020-09-09 22:25] LABS: ANION GAP 16.8 mEq/L (7-13); CHLORIDE,CL 98 mmol/L (98-107); SODIUM,NA 134 mmol/L (136-145)
[2020-09-09] MEDS ORDERED: Magnesium Sulfate/Water 2 GM in Premix Bag 1 BAG IV ONE (23:10)
--- NOTE | 2020-09-10 00:29 | CT ---
PROCEDURE INFORMATION: Exam: CT Abdomen And Pelvis Without Contrast Exam date and time: 09/09/2020 11:33 PM Age: 50 years old Clinical indication: Other: Diffuse abd pain radiating to flank bilaterally; Additional info: R/O pyelo or calculi; Wbc 17k TECHNIQUE: Imaging protocol: Computed tomography of the abdomen and pelvis without contrast. Radiation optimization: All CT scans at this facility use at least one of these dose optimization techniques: automated exposure control; mA and/or kV adjustment per patient size (includes targeted exams where dose is matched to clinical indication); or iterative reconstruction. COMPARISON: CT Abdomen Pelvis w Cont 03/21/2020 10:33 AM FINDINGS: Lungs: The visualized lung bases are clear. Liver: There is a diffuse decrease in hepatic parenchymal density, consistent with severe hepatic steatosis. There is mild enlargement of the liver. No focal liver lesion is seen. Gallbladder and bile ducts: Status post cholecystectomy. Pancreas: The pancreas is normal. Spleen: The spleen is normal. Adrenal glands: The adrenal glands are normal. Kidneys and ureters: The kidneys are normal. No hydronephrosis. No visible calculi. The ureters are normal. Stomach and bowel: Mild diffuse diverticulosis is present in the colon. There is no evidence of colitis/diverticulitis. Non-specific/nonobstructive intestinal gas pattern. Appendix: A normal appendix is identified. Intraperitoneal space: No free intraperitoneal air. No free intraperitoneal fluid. Vasculature: Multiple perisplenic collateral vessels noted. No change. There is no aortic aneurysm. Lymph nodes: There is no adenopathy. No pelvic adenopathy. Urinary bladder: Bladder is normal. Reproductive: The uterus is normal. No adnexal mass. The IUD is been removed. Bones/joints: No acute bony findings are identified. Soft tissues: There is no soft tissue abnormality seen. IMPRESSION: 1. Hepatic steatosis. Mild hepatomegaly. Pattern stable. 2. Perisplenic collateral vessels unchanged, consider portal hypertension. 3. A normal appendix is identified. 4. Diverticulosis.There is no evidence of colitis/diverticulitis.
[2020-09-10 02:48] VITALS: BP 129/78; PULSE 76
== END 2020-09-10 02:45 | disposition home or self-care (01) ==
LOC: DL.ED 20:44
DX: K57.30 Diverticulosis of large intestine without perforation or abscess without bleeding (principal); K83.1 Obstruction of bile duct; E86.0 Dehydration; N17.9 Acute kidney failure, unspecified; K21.9 Gastro-esophageal reflux disease without esophagitis; E11.9 Type 2 diabetes mellitus without complications; Z79.4 Long term (current) use of insulin; Z72.0 Tobacco use; Z79.899 Other long term (current) drug therapy
CPT/HCPCS: 36415; 74176; 80053; 80305-QW; 80307; 81001; 82150; 83605; 83690; 83735; 85025; 86140; 96365; 96366; 96375; 99284-25; J2405; J3475; J7030

== ENCOUNTER 2022-03-09 23:54 | Emergency (ER) | payer BC, OTHER ==
[2022-03-10 00:08] VITALS: BP 106/71; PULSE 95
[2022-03-10] MEDS ORDERED: Ketorolac 30 MG/ML SDV IVPUSH ONE (00:08)
[2022-03-10] MEDS ORDERED: Ondansetron 4 MG/2 ML SDV IVPUSH ONE (00:08)
[2022-03-10] MEDS ORDERED: Sodium Chloride 0.9% 10 ML Syringe FLUSH PRN (00:08)
[2022-03-10] MEDS ORDERED: Sodium Chloride 0.9% 1,000 ML IV ONE ×2 (00:14→03:19)
[2022-03-10 00:39] LABS: ANION GAP 15.6 mEq/L (7-13)
[2022-03-10 01:16] LABS: AMPHETAMINES,URINE NEGATIVE (NEGATIVE); BARBITURATES,URINE NEGATIVE (NEGATIVE); BENZODIAZEPINE,URINE NEGATIVE (NEGATIVE); MDMA (ECSTASY), URINE NEGATIVE (NEGATIVE); METHADONE,URINE NEGATIVE (NEGATIVE); METHAMPHETAMINES,URINE NEGATIVE (NEGATIVE); OPIATES,URINE NEGATIVE (NEGATIVE); OXYCODONE,URINE NEGATIVE (NEGATIVE); PHENCYCLIDINE,URINE NEGATIVE (NEGATIVE); TCA,URINE NEGATIVE (NEGATIVE)
[2022-03-10] MEDS ORDERED: Ciprofloxacin in D5W 400 MG in Premix Bag 1 BAG IV ONE ×2 (04:59)
[2022-03-10] MEDS ORDERED: Acetaminophen/HYDROcodone 325-5 MG Tab PO ONE (05:11)
== END 2022-03-10 06:12 | disposition home or self-care (01) ==
LOC: DL.ED 23:54
DX: K52.9 Noninfective gastroenteritis and colitis, unspecified (principal); E11.9 Type 2 diabetes mellitus without complications; Z79.899 Other long term (current) drug therapy; Z79.84 Long term (current) use of oral hypoglycemic drugs; Z79.82 Long term (current) use of aspirin; Z79.4 Long term (current) use of insulin; Z90.49 Acquired absence of other specified parts of digestive tract
CPT/HCPCS: 36415; 74176; 80053; 80305; 81001; 81025; 83690; 85025; 87040; 96361; 96365; 96375; 99284; A9270; J0744; J1885; J2405; J3490; J7030

== ENCOUNTER 2024-03-22 01:35 | Emergency (ER) | payer BC, OTHER ==
[2024-03-22 02:19] LABS: HEMATOCRIT 46.7 % (37.0-47.0); MEAN CORPUSCULAR HEMOGLOBIN 29.7 pg (27.0-34.0); MEAN CORPUSCULAR HGB CONC 32.1 g/dL (33.0-35.0); MEAN CORPUSCULAR VOLUME 92.5 fL (80-100); PLATELET COUNT,PLT 245 10^3/uL (150-450); RED BLOOD CELL COUNT 5.05 10^6/uL (4.2-5.4); WHITE BLOOD CELL COUNT,WBC 25.3 10^3/uL (5.0-10.0)
[2024-03-22 02:22] LABS: BASOPHILS PERCENT AUTO 0.1 % (0.0-1.0); EOSINOPHILS PERCENT AUTO 1.7 % (1.0-3.0); LYMPHOCYTES PERCENT AUTO 11.9 % (20.5-50.1); MONOCYTES PERCENT AUTO 8.5 % (2-8); NEUTROPHILS PERCENT AUTO 77.8 % (42.2-75.2)
[2024-03-22 02:38] LABS: A/G RATIO 0.8; ALANINE AMINOTRANSFERASE,ALT 55 U/L (14-59); ALBUMIN 3.9 g/dL (3.4-5.0); ALKALINE PHOSPHATASE 217 U/L (46-116); ANION GAP 20.7 mEq/L (7-13); BILIRUBIN TOTAL 0.3 mg/dL (0.2-1.0); BLOOD UREA NITROGEN,BUN 18 mg/dL (7-18); BUN/CREATININE RATIO 16.7 (No establ ref range); CALCIUM 9.6 mg/dL (8.5-10.1); CARBON DIOXIDE,CO2 19 mmol/L (21-32); CHLORIDE,CL 102 mmol/L (98-107); CREATININE 1.08 mg/dL (0.55-1.02); EST CRCL DRUG DOSING (CG) 52.62 mL/min; GLUCOSE RANDOM 164 mg/dL (70-99); LIPASE 134 U/L (16-77); POTASSIUM,K 3.7 mmol/L (3.5-5.1); PROTEIN TOTAL,TP 8.8 g/dL (6.4-8.2); SODIUM,NA 138 mmol/L (136-145)
[2024-03-22 02:39] LABS: LACTIC ACID 1.2 mmol/L (0.4-2.0)
[2024-03-22 02:43] LABS: ESTIMATED GFR 62 mL/min (>=60)
[2024-03-22 02:44] LABS: ETHANOL BLOOD MEDICAL < 3 mg/dL (0)
[2024-03-22 03:02] LABS: BAND PERCENT MAN 9 %; LYMPHOCYTES PERCENT MAN 12 % (20-50); MONOCYTES PERCENT MAN 5 % (2-8); SEG NEUTROPHILS PERCENT MAN 74 % (42-75)
[2024-03-22] MEDS: Sodium Chloride 0.9% 1,000 ML IV ONE (03:02)
[2024-03-22] MEDS: Ondansetron 4 MG/2 ML SDV IVPUSH ONE (03:02)
[2024-03-22] MEDS: Iopamidol 612 MG/ML 100 ML Bottle IVPUSH ONE (03:32)
[2024-03-22 03:43] LABS: ASPARTATE AMNIOTRANSFERASE,AST 19 U/L (15-37)
[2024-03-22 05:31] LABS: APPEARANCE,URINE CLEAR (CLEAR); BILIRUBIN,URINE NEGATIVE (NEGATIVE); COLOR,URINE YELLOW (YELLOW); GLUCOSE,URINE NEGATIVE (NEGATIVE); KETONES,URINE NEGATIVE (NEGATIVE); LEUKOCYTE ESTERASE,URINE NEGATIVE (NEGATIVE); NITRITE,URINE NEGATIVE (NEGATIVE); OCCULT BLOOD,URINE NEGATIVE (NEGATIVE); PH,URINE 5.5 (5.0-9.0); PROTEIN,URINE 30 (NEGATIVE); UROBILINOGEN,URINE 0.2 mg/dL (0.2-1.0)
[2024-03-22 05:32] LABS: AMPHETAMINES,URINE NEGATIVE (NEGATIVE); BARBITURATES,URINE NEGATIVE (NEGATIVE); BENZODIAZEPINE,URINE NEGATIVE (NEGATIVE); MDMA (ECSTASY), URINE NEGATIVE (NEGATIVE); METHADONE,URINE NEGATIVE (NEGATIVE); METHAMPHETAMINES,URINE NEGATIVE (NEGATIVE); OPIATES,URINE NEGATIVE (NEGATIVE); OXYCODONE,URINE NEGATIVE (NEGATIVE); PHENCYCLIDINE,URINE NEGATIVE (NEGATIVE); TCA,URINE NEGATIVE (NEGATIVE)
[2024-03-22 05:36] LABS: BACTERIA,URINE FEW /HPF (0-FEW/HPF); EPITHELIAL CELLS,URINE MODERATE /HPF (NOT SEEN); HYALINE CASTS,URINE FEW; MUCUS,URINE FEW /LPF (NOT SEEN); RBC,URINE 0-5 /HPF (0-5)
[2024-03-22 05:46] VITALS: BP 110/52; PULSE 87
[2024-03-22] MEDS: Take Home: Ondansetron 4 MG Tab.DIS, 5 Tab Pack PO ONE (05:48)
== END 2024-03-22 05:56 | disposition home or self-care (01) ==
LOC: DL.ED 01:35
DX: K52.9 Noninfective gastroenteritis and colitis, unspecified (principal); E11.9 Type 2 diabetes mellitus without complications; Z90.49 Acquired absence of other specified parts of digestive tract; Z86.16 Personal history of COVID-19; Z79.4 Long term (current) use of insulin; Z79.84 Long term (current) use of oral hypoglycemic drugs; Z79.82 Long term (current) use of aspirin; Z79.899 Other long term (current) drug therapy
CPT/HCPCS: 36415; 71045; 74177; 80053; 80305; 80307; 81001; 83605; 83690; 83735; 84484; 85025; 96361; 96374; 99284; J2405; J7030; Q0162; Q9967

== ENCOUNTER 2024-06-07 23:05 | Emergency (ER) | payer BC, OTHER ==
[2024-06-08 00:40] VITALS: BP 131/82; PULSE 87
[2024-06-08] MEDS: valACYclovir 1,000 MG Tab PO ONE (00:55)
[2024-06-08] MEDS: Ketorolac 30 MG/ML SDV IM ONE (00:55)
[2024-06-08] MEDS: Take Home: Acetaminophen/oxyCODONE 325-5 MG, 5 Tab Pack PO ONE (01:10)
== END 2024-06-08 01:18 | disposition home or self-care (01) ==
LOC: DL.ED 23:05
DX: B02.8 Zoster with other complications (principal); E11.9 Type 2 diabetes mellitus without complications; E66.9 Obesity, unspecified; F17.210 Nicotine dependence, cigarettes, uncomplicated; Z79.899 Other long term (current) drug therapy; Z79.82 Long term (current) use of aspirin; Z79.4 Long term (current) use of insulin; Z86.16 Personal history of COVID-19; Z90.49 Acquired absence of other specified parts of digestive tract
CPT/HCPCS: 96372; 99283; A9270; J1885